=== PATIENT | female | born 1980 | race Caucasian/White ===

== ENCOUNTER 2017-08-03 09:53 | Day surgery (SDC) | payer MEDICAID, OTHER ==
[2017-08-02 10:08] VITALS: BMI 32.2
[~2017-08-03 09:53] MED LIST: LACTATED RINGERS 1,000 ML IV SCH
[2017-08-03 11:21] VITALS: TEMP 98.1
[2017-08-03] MEDS ORDERED: LIDOCAINE 1% 20 ML VIAL (10MG/ML) FOR IV START INTRADERMA ONE (11:30)
[2017-08-03] MEDS ORDERED: GLYCOPYRROLATE 0.2 MG/ML 2 ML VIAL ONE (12:04)
[2017-08-03] MEDS ORDERED: PROPOFOL 10 MG/ML 20 ML VIAL IV ONE (12:04)
[2017-08-03] MEDS ORDERED: MIDAZOLAM 2 MG/2 ML VIAL ONE (12:04)
[2017-08-03] MEDS ORDERED: fentaNYL (PF) 50 MCG/ML 2 ML AMP ONE (12:04)
--- NOTE | 2017-08-03 12:24 | P.PCN ---
Date of Procedure: 08/03/17 Preoperative Diagnosis: Postoperative Diagnosis: Procedure(s) Performed: Brief history: Patient is a pleasant 37-year-old white female, scheduled for an elective upper endoscopy as well as colonoscopy as a part of evaluation of abdominal discomfort , GERD and chronic diarrhea ,on and off for the last 1 year duration. Procedure performed: Esophagogastroduodenoscopy with biopsy Colonoscopy with biopsy Preoperative diagnosis: GERD Chronic diarrhea Anesthesia: MAC Procedure: After informed consent was obtained from the patient was brought into the endoscopy unit and IV sedation was administered by anesthesia under continuous monitoring. Initially upper endoscopy was done. The Olympus GF 160 video endoscope was inserted inserted into the mouth and esophagus intubated without any difficulty and was gradually advanced into the stomach and duodenum and carefully examined. The bulb and second part of the duodenum appeared normal. Biopsies were done from the duodenum to rule out celiac disease. The scope was then withdrawn into the stomach adequately insufflated with air and upon careful examination the antrum had mild gastritis and biopsies were done from this area. The body, cardia and fundus appeared normal. The scope was then withdrawn into the esophagus. The GE junction was located at 40 cm to the incisors. It appeared regular with no erythema erosions or ulcerations. Rest of the esophagus appeared normal. Patient tolerated the procedure well. At this time the patient continued to remain sedation. Initial digital rectal examination was normal. Olympus CF 160 video colonoscope was then inserted into the rectum and gradually advanced to the cecum without any difficulty. Careful examination was performed as the scope was gradually being withdrawn. The prep was excellent. The cecum, ascending colon, transverse colon, descending colon, sigmoid colon and rectum appeared normal. Random biopsies were done from the ascending and descending colon to rule out microscopic/ collagenous colitis. Retroflexion was performed in the rectum and no lesions were noted. Patient tolerated the procedure well. Impression: 1. Upper endoscopy revealed mild antral gastritis but no evidence of esophagitis or peptic ulcer disease 2. Colonoscopy revealed was within normal limits with no evidence of colitis or colorectal neoplasia. Recommendations: Findings of this examination were discussed with the patient as well as her family. she was advised to follow with the biopsy results. She will continue with Prilosec and follow antireflux measures. Implants: Indications for Procedure: Operative Findings: Description of Procedure:
[2017-08-03 12:44] VITALS: BP 107/58; PULSE 66; RESP 18
== END 2017-08-03 13:08 | disposition home or self-care (01) ==
LOC: ORWHC2ENDO 09:53
PROVIDERS: ATTEND Internal Medicine Gastroenterology
DX: K29.50 Unspecified chronic gastritis without bleeding (principal); K21.9 Gastro-esophageal reflux disease without esophagitis; K52.9 Noninfective gastroenteritis and colitis, unspecified; F17.210 Nicotine dependence, cigarettes, uncomplicated; Z79.899 Other long term (current) drug therapy
CPT/HCPCS: 88305; 88342; 45380; 43239; J2250; J3010; J2704

== ENCOUNTER → 2018-08-23 | Outpatient (CLI) | payer MEDICAID | END | disposition home or self-care (01) | LOC: LABWHC1 10:02 | PROVIDERS: ATTEND Nurse Practitioner Family | DX: K21.9 Gastro-esophageal reflux disease without esophagitis (principal); J02.9 Acute pharyngitis, unspecified; R19.7 Diarrhea, unspecified; E04.1 Nontoxic single thyroid nodule; R53.83 Other fatigue | CPT/HCPCS: 36415 ==

== ENCOUNTER → 2018-08-23 | Outpatient (CLI) | payer MEDICAID ==
[2018-08-23 11:52] LABS: ALT 39 U/L (9-52); AST 25 U/L (14-36); Albumin 4.4 g/dL (3.5-5.0); Alkaline Phosphatase 66 U/L (38-126); Amylase 48 U/L (30-110); Anion Gap 9 mmol/L; Blood Urea Nitrogen 7 mg/dL (7-17); Calcium 9.9 mg/dL (8.4-10.2); Carbon Dioxide 26 mmol/L (22-30); Chloride 105 mmol/L (98-107); Glucose 82 mg/dL (74-99); Lipase 60 U/L (23-300); Potassium 4.3 mmol/L (3.5-5.1); Sodium 140 mmol/L (137-145); Total Bilirubin 0.7 mg/dL (0.2-1.3); Total Protein 7.3 g/dL (6.3-8.2)
[2018-08-23 18:45] LABS: Thyroid Peroxidase Antibodies 76.7 U/mL (0.0-60.0)
[2018-08-23 20:30] LABS: Hepatitis A Antibody IgM Non-Reactive (Non-Reactive); Hepatitis B Core IgM Non-Reactive (Non-Reactive)
[2018-08-24 11:33] LABS: Gluten IgE Class CLASS 0
== END | disposition home or self-care (01) ==
LOC: LABWHC1 10:06
PROVIDERS: ATTEND Otolaryngology
DX: J30.89 Other allergic rhinitis (principal)
CPT/HCPCS: 36415; 80053; 80074; 82150; 83690; 86001; 86003; 86376

== ENCOUNTER 2018-09-07 08:36 | Day surgery (SDC) | payer MEDICAID, OTHER ==
[2018-09-07 09:20] VITALS: BP 121/74; PULSE 67; RESP 20; TEMP 97.8
--- NOTE | 2018-09-07 13:34 | US ---
EXAMINATION TYPE: US FNA thyroid DATE OF EXAM: 09/07/2018 COMPARISON: NONE HISTORY: Thyroid nodule. Maximal barrier technique was utilized. After informed consent, skin overlying the lesion was locali zed with ultrasound and the overlying skin prepped and draped. Ultrasound was utilized using sterile technique. Lidocaine was used for local anesthesia. Five passes with a 25-gauge needle were made int o the left-sided thyroid nodule and aspirated specimen was submitted to cytology. Following the proc edure hemostasis achieved. No immediate complication. The patient discharged in stable condition. IMPRESSION: STATUS POST ULTRASOUND GUIDED FINE NEEDLE ASPIRATION OF THYROID NODULE, PATHOLOGY IS PEND ING. THIS PROCEDURE WAS PERFORMED BY THE UNDERSIGNED.
== END 2018-09-07 11:10 | disposition home or self-care (01) ==
LOC: RADPROMAIN 08:36
PROVIDERS: ATTEND Otolaryngology
DX: E04.1 Nontoxic single thyroid nodule (principal); E06.3 Autoimmune thyroiditis; E03.9 Hypothyroidism, unspecified
CPT/HCPCS: 10022; 36415; 76942; 88173; 88305

== ENCOUNTER 2018-10-02 08:02 | Day surgery (SDC) | payer MEDICAID ==
[2018-10-02 10:02] VITALS: BP 116/69; PULSE 56; RESP 18; TEMP 98.3
--- NOTE | 2018-10-02 10:28 | US ---
EXAMINATION TYPE: US FNA thyroid DATE OF EXAM: 10/02/2018 COMPARISON: NONE HISTORY: Thyroid nodule. Maximal barrier technique was utilized. After informed consent, skin overlying the lesion was locali zed with ultrasound and the overlying skin prepped and draped. Ultrasound was utilized using sterile technique. Lidocaine was used for local anesthesia. Five passes with a 25-gauge needle were made int o the nodule and aspirated specimen was submitted to cytology. Following the procedure hemostasis ac hieved. No immediate complication. The patient discharged in stable condition. IMPRESSION: STATUS POST ULTRASOUND GUIDED FINE NEEDLE ASPIRATION OF THYROID NODULE, PATHOLOGY IS PEND ING. THIS PROCEDURE WAS PERFORMED BY THE UNDERSIGNED.
== END 2018-10-02 10:07 | disposition home or self-care (01) ==
LOC: RADPROMAIN 08:02
PROVIDERS: ATTEND Nurse Practitioner Family
DX: E04.1 Nontoxic single thyroid nodule (principal)
CPT/HCPCS: 10022; 76942; 88173; 88305

== ENCOUNTER 2018-10-20 18:19 | Emergency (ER) | payer MEDICAID, OTHER ==
[2018-10-20 18:25] VITALS: TEMP 98.3
--- NOTE | 2018-10-20 18:52 | ED ---
General Adult HPI - General Chief complaint: Needlestick/Exposure Stated complaint: Needle stick Time Seen by Provider: 10/20/18 18:29 Source: patient, RN notes reviewed Mode of arrival: ambulatory Limitations: no limitations - History of Present Illness Initial comments: Patient is a 38-year-old female who presents the emergency department with complaint of a needle stick injury that happened approximately 6 PM today. 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 She cleaned the wound thoroughly. She is up-to-date on her tetanus vaccine. Patient denies any recent fever, chills, shortness of breath, chest pain, back pain, abdominal pain, nausea or vomiting, numbness or tingling, headaches or visual changes, or any other complaints. - Related Data Home Medications Medication Instructions Recorded Confirmed Levothyroxine Sodium [Synthroid] 88 mcg PO DAILY 09/11/15 10/02/18 Multivitamins, Thera [Multivitamin] 1 tab PO DAILY 05/06/16 10/02/18 Calcium Carbonate [Calcium] 1,200 mg PO DAILY 08/02/17 10/02/18 Cholecalciferol [Vitamin D3] 2,000 unit PO DAILY 08/02/17 10/02/18 Fluticasone Nasal [place] [Flonase 1 spray EA NOSTRIL DAILY 08/30/18 10/02/18 Nasal [place]] Montelukast [Singulair] 10 mg PO HS 08/30/18 10/02/18 Omeprazole [PriLOSEC] 40 mg PO BID 08/30/18 10/02/18 Allergies Allergy/AdvReac Type Severity Reaction Status Date / Time No Known Allergies Allergy Verified 10/20/18 18:25 Review of Systems ROS Statement: Those systems with pertinent positive or pertinent negative responses have been documented in the HPI. ROS Other: All systems not noted in ROS Statement are negative. Past Medical History Past Medical History: Thyroid Disorder Additional Past Medical History / Comment(s): RECENT CHANGE IN BOWEL HABITS AND INCREASED MUCUS IN STOOLS, thyroid nodule History of Any Multi-Drug Resistant Organisms: None Reported Past Surgical History: Hysterectomy Additional Past Surgical History / Comment(s): Oophorectomy 2012 Past Anesthesia/Blood Transfusion Reactions: No Reported Reaction Past Psychological History: No Psychological Hx Reported Smoking Status: Former smoker Past Alcohol Use History: Occasional Past Drug Use History: None Reported - Past Family History Mother Family Medical History: No Reported History General Exam Limitations: no limitations General appearance: alert, in no apparent distress Head exam: Present: atraumatic, normocephalic Eye exam: Present: normal appearance Respiratory exam: Present: normal lung sounds bilaterally Cardiovascular Exam: Present: regular rate, normal rhythm Extremities exam: Present: full ROM (Hands and fingers.), other (Tiny erythematous dot where finger was stuck. No active bleeding.) Neurological exam: Present: alert, oriented X3 Psychiatric exam: Present: normal affect, normal mood Skin exam: Present: dry, normal color Course Vital Signs 10/20/18 18:22 Temperature 98.3 F Pulse Rate 83 Respiratory 18 Rate Blood Pressure 127/66 O2 Sat by Pulse 99 Oximetry Medical Decision Making - Medical Decision Making Patient works here at the hospital. Source patient will be checked for HIV status and she will be notified of the results (she does not want to wait here for results). Discussed HIV prophylaxis; patient has chosen to wait for the HIV results of the source patient. Ms. Nayak's cell phone number that she provided to receive her results is . Case discussed in detail with attending physician Dr. Roberts. Disposition Clinical Impression: Needle stick injury of finger Disposition: HOME SELF-CARE Condition: Good Instructions: Needle Stick Injuries (ED) Additional Instructions: Follow up with [employer] in 1-2 days. Is patient prescribed a controlled substance at d/c from ED?: No Referrals: Jenifer Hernandez DO [Primary Care Provider] - 1-2 days
[2018-10-20 20:15] VITALS: BP 120/74; PULSE 65; RESP 16
== END 2018-10-20 20:10 | disposition home or self-care (01) ==
LOC: EC 18:19
DX: S69.90XA Unspecified injury of unspecified wrist, hand and finger(s), initial encounter (principal); E07.9 Disorder of thyroid, unspecified; Z79.899 Other long term (current) drug therapy; W27.3XXA Contact with needle (sewing), initial encounter; Y92.239 Unspecified place in hospital as the place of occurrence of the external cause; Y99.0 Civilian activity done for income or pay
CPT/HCPCS: 99282

== ENCOUNTER → 2018-11-16 | Outpatient (CLI) | payer MEDICAID ==
--- NOTE | 2018-11-16 14:12 | MR ---
EXAMINATION TYPE: MR brain wo/w con DATE OF EXAM: 11/16/2018 COMPARISON: NONE HISTORY: Prolonged headaches TECHNIQUE: Multiplanar, multisequence images of the brain and brainstem is performed without and with IV contras t, utilizing 9 mL intravenous Gadavist . FINDINGS: Diffusion weighted images demonstrate no evidence of a recent infarct. There is a solitary punctate (2.4 mm) left periventricular T2/FLAIR hyperintense focus on FLAIR fat sat axial image 20. N o other significant white matter changes seen. This does not demonstrate enhancement. There is no extra-axial fluid collection or significant white matter signal abnormality. The ventric ular system and cisternal spaces are normal in size and appearance. The brain volume is age appropri ate. Midline structures demonstrate normal morphology. Incidental note is made of a partially empty sella turcica. 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 There is undulation of the optic nerves and promi nent T2 hyperintense subarachnoid spaces surrounding the optic nerves. The craniocervical junction appears within normal limits. Post contrast images demonstrate no abnorm al enhancement. The dural venous sinuses appear patent. The visualized sinuses are clear other than m ild mucosal thickening in the ethmoid sinuses and scant mucosal thickening in the left maxillary sinu s. Mastoid air cells are also well aerated. IMPRESSION: 1. There are findings that suggest idiopathic intracranial hypertension/pseudotumor cerebri as there is increased fluid surrounding the optic nerves, undulation of the optic nerves, and partially empty sella turcica. Ophthalmologic exam is recommended to evaluate for papilledema. 2. Solitary left periventricular 2.4 mm focus of white matter change. This could be on the basis of e chelsey microangiopathy, sequela of migraines, or related to demyelination. 3. No abnormal intracranial enhancement or acute infarct.
== END | disposition home or self-care (01) ==
LOC: RADMRIMAIN 07:47
PROVIDERS: ATTEND Psychiatry & Neurology Neurology
DX: R90.89 Other abnormal findings on diagnostic imaging of central nervous system (principal)
CPT/HCPCS: 70553; A9585

== ENCOUNTER → 2018-11-29 | Outpatient (CLI) | payer MEDICAID | LOC: LABWHC1 13:12 | PROVIDERS: ATTEND Internal Medicine Endocrinology, Diabetes & Metabolism | DX: E03.8 Other specified hypothyroidism (principal) | CPT/HCPCS: 36415; 84443 ==

== ENCOUNTER → 2018-12-05 | Outpatient (CLI) | payer MEDICAID ==
--- NOTE | 2018-12-05 10:21 | MR ---
EXAMINATION TYPE: MR venography head wo con DATE OF EXAM: 12/05/2018 COMPARISON: MRI brain 11/16/2018 HISTORY: Headaches / Papilledema Standard multiplanar, multisequence MRV departmental protocol Multiplanar, multisequence images as part of MRV were acquired. Diffusion weighted imaging was perfor med. FINDINGS: Exam is nondiagnostic in assessment for thrombosis due to extensive artifact. There does no t appear to be any significant compression of the dural venous sinuses. Slight asymmetry involving th e base of the skull was likely developmental. Report called to referring clinician. IMPRESSION: Markedly limited exam due to artifact. Intraluminal thrombus cannot be excluded and this exam is nond iagnostic for thrombosis. There is no dural venous sinus compression. If there is concern for dural v enous sinus thromboses then consider repeat exam with and without contrast.
--- NOTE | 2018-12-06 13:46 | MR ---
MRV with contrast HISTORY: Headaches and papilledema Phase contrast and dynamic Postcontrast imaging obtained through the brain following 9 cc Gadavist. T hree-dimensional post processing performed on an alternate workstation. Correlation to prior MRV 12/05/2018 There is no interval change in the appearance of the venous structures within the brain. Straight sin us, bilateral transverse sinus and sigmoid sinus, sagittal sinus and vena Joshua are patent. There is no filling defect to suggest thrombus. IMPRESSION: No abnormality to suggest thrombus within the cerebral veins.
== END | disposition home or self-care (01) ==
LOC: RADMRIMAIN 07:46
PROVIDERS: ATTEND Ophthalmology
DX: R51 Headache (principal); H47.10 Unspecified papilledema
CPT/HCPCS: 70544; 70545

== ENCOUNTER 2018-12-19 07:31 | Day surgery (SDC) | payer MEDICAID ==
[2018-12-18 08:30] VITALS: BMI 29.6
[~2018-12-19 07:31] MED LIST changes: -LACTATED RINGERS 1,000 ML IV SCH; +SODIUM CHLORIDE 0.9% 500 ML 500 ML IV SCH
[2018-12-19 08:45] VITALS: RESP 16; TEMP 97.6
[2018-12-19] MEDS ORDERED: LIDOCAINE 1% 20 ML VIAL (10MG/ML) FOR IV START INTRADERMA ONE (08:49)
[2018-12-19] MEDS ORDERED: LACTATED RINGERS 1,000 ML IV ONE (08:49)
[2018-12-19] MEDS ORDERED: IV FLUID CONTINUATION 1,000 ML IV ONE (09:54)
--- NOTE | 2018-12-19 09:55 | P.PCN ---
Date of Procedure: 12/19/18 Procedure(s) Performed: Preoperative diagnosis: Pseudotumor cerebri. Post operative diagnoses: Pseudotumor cerebri Anesthesia local infiltration with lidocaine 1% 2 mL.only Condition: stable Complication: none. Description of the procedure procedure risk and benefits discussed with the patient and family, consent signed. Patient and the procedure area placed in lateral position , ( left side down ) then the back prepped with chlorhexidine 3 times been local infiltration of the skin and subcutaneous tissue with lidocaine 1% 2 mL for skin and subcu interstitial frustrations at L4 5 levels then 22-gauge Quincke-type needle advanced slowly at L4- 5 interlaminar space there was positive cerebrospinal fluid which was clear, no heme, no paresthesia ,total of 10.5 ML of clear cerebrospinal fluid collected in 4 different tubes 2-2-1/2 mL in each, then the needle removed and a Band-Aid applied and patient tolerated the procedure well without any complications. Opening pressure 34 cm of water. Closing pressure 20 cm of water (after removal of tenderness ML of clear cerebrospinal fluid )
[2018-12-19 10:36] LABS: Glucose,CSF 48 mg/dL (40-70); Total Protein,CSF 15 mg/dL (12-60)
[2018-12-19 10:49] VITALS: BP 121/78; PULSE 61
[2018-12-19 12:43] LABS: Appearance,CSF Clear; CSF Tube Number 4; CSF Tube Volume 2.3; Red Blood Cell,CSF 0 u/L (0-10)
[2018-12-19 12:44] LABS: Nucleated Cells, CSF 0 u/L (0-5)
== END 2018-12-19 11:08 | disposition home or self-care (01) ==
LOC: ORPAIN 07:31
PROVIDERS: ATTEND Specialist
DX: G93.2 Benign intracranial hypertension (principal)
CPT/HCPCS: 84157; 82945; 89050; 62270; J2001

== ENCOUNTER → 2019-03-09 | Outpatient (CLI) | payer MEDICAID ==
[2019-03-09 16:44] VITALS: BP 117/74; PULSE 85; RESP 18; TEMP 98.5; BMI 27.6
--- NOTE | 2019-03-09 17:18 | P.GSHP ---
History of Present Illness H&P Date: 03/09/19 Chief Complaint: skin changes Patient is a 38-year-old white female who presents with a complaint of burning sensation in the right axillary area. She states that it starts in the axilla and spreads towards the nipple complex. This is been going on for approximately 2 weeks. She states it is worse if anything rubs against this area. She also feels that she has some increased thickening of the skin in this region and especially in the inferior aspect of the breast. This is questionably been going on for approximately 2 years. The patient is postmenopausal secondary to a bilateral oophorectomy at the age of 32. She had a hysterectomy at 30 for uterine bleeding. She willian started having severe abdominal pain with bowel movements. She than had an abdominal exploration and had bilateral oophrectomy done at that time. She was taking premerin for three years, and than tried bio- identical hormone cream, for about 6 months. She than used a menostar patch and had sever hip pain. She started premarin again in May of 2018 and used it for 2 weeks and stopped this. she is not taking anything at the present time. The patient states that she notes that the right area right is larger than the left periareolar. She has no history of any trauma to her breast. She has no history of any infection in her breast. Her breast pain is not cyclical. The pain can be exacerbated by movement. She does associate the pain starting with a course of Levaquin that she has now stopped this on February 14. She initially had burning on the right side of her body and now the abdomen has subsided and she only has the residual burning in the right breast. This was started for a sinus infection. The patient was drinking approximately 20 ounces of coffee per day. She is now cut it down to 12 ounce cup of coffee per day. She is not drinking other caffeine. She does not eat chocolate. She does not smoke however, she is exposed to secondhand smoke as her smokes. The patient did undergo a bilateral mammogram on 02/16/2019suspicious calcifications were seen in either breast. She also had a ultrasound of the right breast performed which was felt to be benign. Recommendation was for routine screening mammogram of both breasts at age 42. Family History: 1. maternal grandmother: breast cancer 70's 2. maternal uncle:esophogeal 3. maternal great uncle: colon 4. paternal grandfather, grandmother, and aunt: lung cancer Hormonal History: menarche: 16 : G2,P2, first at 23, breast fed: yes menopause: 32 surgical BCP:none hormones: as above Past surgical history: 1. Hysterectomy 2. Bilateral oophorectomy 3. Appendectomy Past Medical History: 1. Idiopathic intracranial hypertension causing headaches, (on Diamox) 2. breast pain Surgical History: smoke: none, stopped 2010 alcohol: 3-4 drinks/year drugs: none - Constitutional Constitutional: Reports sweats - EENT Eyes: right pain (monitered by neuro-opthamologist) Ears: bilateral: tinnitus, deny: decreased hearing Ears, nose, mouth and throat: Reports headache, Reports sore throat - Breasts Breasts: bilateral: as per HPI - Cardiovascular Cardiovascular: Denies chest pain, Denies shortness of breath - Respiratory Respiratory: Denies cough, Denies 7 - Gastrointestinal Comment: GERD Gastrointestinal: Reports diarrhea - Genitourinary (Female) Genitourinary: Denies dysuria, Denies hematuria - Menstruation Menstruation: Reports postmenopausal - Musculoskeletal Comment: right knee stiffness and tremers - Integumentary Comment: Patient noted red spots over her chest and both breasts and abdomen over the past year, since May, told age related angiomas Integumentary: Denies pruritus - Neurological Neurological: Reports weakness, Denies numbness - Psychiatric Psychiatric: Reports anxiety, Reports depression - Endocrine Comment: Trupti's thyroiditis, hypothyroidism, left-sided thyroid nodule - Hematologic/Lymphatic Comment: none - Allergic/Immunologic Allergic/Immunologic: Reports seasonal allergies Past Medical History Past Medical History: GERD/Reflux, Thyroid Disorder Additional Past Medical History / Comment(s): thyroid nodule. pseudotumor cerbri/idiopathic intracranial hypertension History of Any Multi-Drug Resistant Organisms: None Reported Past Surgical History: Appendectomy, Hysterectomy Additional Past Surgical History / Comment(s): Oophorectomy 2011. colonoscopy, egd Past Anesthesia/Blood Transfusion Reactions: Motion Sickness Past Psychological History: Anxiety, Depression Smoking Status: Never smoker Past Alcohol Use History: Rare Past Drug Use History: None Reported - Past Family History Mother Family Medical History: No Reported History Medications and Allergies Home Medications Medication Instructions Recorded Confirmed Type Cholecalciferol [Vitamin D3] 2,000 unit PO QAM 08/02/17 03/09/19 History Levothyroxine Sodium [Synthroid] 100 mcg PO QAM 12/18/18 03/09/19 History ALPRAZolam [Xanax] 0.25 mg PO DAILY PRN 02/25/19 03/09/19 History Diphenox-Atrop 2.5-0.025 mg 1 - 2 tab PO QID PRN 3 Days #24 tab 02/25/19 03/09/19 Rx [Lomotil] Famotidine [Pepcid AC] 10 mg PO DAILY PRN 02/25/19 03/09/19 History Zoloft (Unknown Dose) 1 tab PO HS 02/25/19 03/09/19 History Zolpidem Tartrate [Ambien] 5 mg PO HS PRN 02/25/19 03/09/19 History acetaZOLAMIDE [Diamox Sequels] 500 mg PO PC-LUNCH 02/25/19 03/09/19 History Multivitamins, Thera [Multivitamin 1 tab PO QAM 03/09/19 03/09/19 History (formulary)] Rifaximin [Xifaxan] 550 mg PO TID 03/09/19 03/09/19 History clonazePAM [KlonoPIN] 0.25 mg PO QAM 03/09/19 03/09/19 History clonazePAM [KlonoPIN] 0.5 mg PO HS 03/09/19 03/09/19 History Allergies Allergy/AdvReac Type Severity Reaction Status Date / Time levofloxacin [From Levaquin] AdvReac Nausea & Verified 03/09/19 16:29 Vomiting & Diarrhea Surgical - Exam BMI 27.7 - General well developed, well nourished, no distress - Eyes normal ocular movement - ENT no hearing loss, no congestion - Neck no masses, trachea midline - Respiratory normal respiratory effort, clear to auscultation - Cardiovascular Rhythm: regular Heart Sounds: normal: S1, S2 - Abdomen Abdomen: soft, non tender, no guarding, no rigid, no rebound - Neurologic no disoriented, no combative - Musculoskeletal normal gait, normal posture - Psychiatric oriented to time, oriented to person, oriented to place, speech is normal, memory intact breast exam: right breast: The patient's right breast is slightly larger than the left breast there is some mild dependent edema and inferior aspect, multiple positional exam no dominant masses or nodules of concern Right axilla: No adenopathy of concern Left breast multiple positional exam fibrocystic changes no dominant mass or notches of concern Left axilla: No adenopathy of concern Results Mammogram and ultrasound results reviewed Assessment and Plan Assessment: Impression: 1. Right breast/axillary discomfort 2. Right back/shoulder discomfort 3. Postmenopausal/surgical 4. Inferior dependent edema the right breast 5. Asymmetry of the breasts 6. High caffeine intake 7. Secondhand smoke exposure 8. Idiopathic intracranial hypertension 9. Back pain 10. No evidence of any breast malignancy I have had a long conversation with the patient regarding her breast discomfort. I believe that the skin changes are most likely related to the asymmetry in her breast and some dependent edema. There is no indication of any malignancy. The patient does have some point tenderness in her right back which is felt to be musculoskeletal in nature and not emanating from the breast. We have discussed stopping her caffeine intake, and limiting her exposure to nicotine. We have also discussed the possible benefit of primrose oil. I suggested massage therapy to her back. Plan: 1. Stop caffeine 2. Limited nicotine exposure 3. Massage therapy for back pain 4. Mahomet oil 5. Reassurance that the area of skin change in the right inferior breast does not appear to be consistent with malignancy 6. We have decided the patient again in several months to ascertain if the interventions have helped with her breast discomfort. 7. Medical management of medical conditions. Cc: Dr. Nilo Noe
== END | disposition home or self-care (01) ==
LOC: WWCWWP 16:10
PROVIDERS: ATTEND Surgery
DX: Z53.9 Procedure and treatment not carried out, unspecified reason (principal)

== ENCOUNTER 2019-04-28 15:23 | Emergency (ER) | payer MEDICAID ==
[2019-04-28 15:56] VITALS: RESP 18
[2019-04-28] MEDS ORDERED: SODIUM CHLORIDE 0.9% 1,000 ML IV STA (16:01)
[2019-04-28 16:25] LABS: Basophils # (A) 0.1 k/uL (0-0.2); Basophils % (A) 1 %; Eosinophils # (A) 0.1 k/uL (0-0.7); Eosinophils % (A) 2 %; HCT 42.8 % (34.0-46.0); HGB 13.5 gm/dL (11.4-16.0); Lymphocytes # (A) 1.9 k/uL (1.0-4.8); Lymphocytes % (A) 23 %; MCH 28.7 pg (25.0-35.0); MCHC 31.6 g/dL (31.0-37.0); MCV 90.8 fL (80.0-100.0); Mean Platelet Volume 7.1; Monocytes # (A) 0.5 k/uL (0-1.0); Monocytes % (A) 6 %; Neutrophils # (A) 5.3 k/uL (1.3-7.7); Neutrophils % (A) 67 %; Platelet Count 340 k/uL (150-450); RBC 4.71 m/uL (3.80-5.40); WBC 7.9 k/uL (3.8-10.6)
[2019-04-28 16:33] LABS: Partial Thromboplastin Time 25.6 sec (22.0-30.0); Prothrombin Time 10.6 sec (9.0-12.0)
[2019-04-28] MEDS ORDERED: PANTOPRAZOLE 40 MG/10 ML VIAL IVP STA (16:34)
[2019-04-28 16:41] LABS: Albumin 4.8 g/dL (3.5-5.0); Calcium 9.9 mg/dL (8.4-10.2); Potassium 4.2 mmol/L (3.5-5.1); Total Bilirubin 0.7 mg/dL (0.2-1.3); Total Protein 7.6 g/dL (6.3-8.2)
--- NOTE | 2019-04-28 16:56 | ED ---
General Adult HPI - General Chief complaint: Abdominal Pain Stated complaint: bloody stool/abdominal & rectal pressure Time Seen by Provider: 04/28/19 15:57 Source: patient, RN notes reviewed Mode of arrival: ambulatory Limitations: no limitations - History of Present Illness Initial comments: 38 year old female with a past medical history of Trupti's, GERD, pseudotumor cerebri presents to the emergency department for a chief complaint of abdominal pain 11 months. Patient states that she has had worsening abdominal and rectal pressure for the past 11 months. Patient states she is now having looser stool. States that she had more pressure in her rectum today so came to the emergency department. States she has had blood in her stool for the past 11 months as well. States it is bright red in nature. Patient states she did have a colonos copy in 2017 because of mucus in her stool which was negative. States that 2 months ago she had 2 CTs that were negative of the abdomen and pelvis. Denies any nausea or vomiting. Denies any fevers. Patient states that she is also having some chest pain and states she is very anxious. States the chest pain as it on and off for weeks.Patient has no other complaints at this time including shortness of breath, chest pain, nausea or vomiting, headache, or visual changes. - Related Data Home Medications Medication Instructions Recorded Confirmed Cholecalciferol [Vitamin D3] 2,000 unit PO QAM 08/02/17 03/09/19 Levothyroxine Sodium [Synthroid] 100 mcg PO QAM 12/18/18 03/09/19 ALPRAZolam [Xanax] 0.25 mg PO DAILY PRN 02/25/19 03/09/19 Famotidine [Pepcid AC] 10 mg PO DAILY PRN 02/25/19 03/09/19 Zoloft (Unknown Dose) 1 tab PO HS 02/25/19 03/09/19 Zolpidem Tartrate [Ambien] 5 mg PO HS PRN 02/25/19 03/09/19 acetaZOLAMIDE [Diamox Sequels] 500 mg PO PC-LUNCH 02/25/19 03/09/19 Multivitamins, Thera [Multivitamin 1 tab PO QAM 03/09/19 03/09/19 (formulary)] Rifaximin [Xifaxan] 550 mg PO TID 03/09/19 03/09/19 clonazePAM [KlonoPIN] 0.25 mg PO QAM 03/09/19 03/09/19 clonazePAM [KlonoPIN] 0.5 mg PO HS 03/09/19 03/09/19 Previous Rx's Medication Instructions Recorded Diphenox-Atrop 2.5-0.025 mg 1 - 2 tab PO QID PRN 3 Days #24 tab 02/25/19 [Lomotil] Allergies Allergy/AdvReac Type Severity Reaction Status Date / Time levofloxacin [From Levaquin] AdvReac Nausea & Verified 04/28/19 15:56 Vomiting & Diarrhea Review of Systems ROS Statement: Those systems with pertinent positive or pertinent negative responses have been documented in the HPI. ROS Other: All systems not noted in ROS Statement are negative. Past Medical History Past Medical History: GERD/Reflux, Thyroid Disorder Additional Past Medical History / Comment(s): thyroid nodule. pseudotumor cerbri/idiopathic intracranial hypertension History of Any Multi-Drug Resistant Organisms: None Reported Past Surgical History: Appendectomy, Hysterectomy Additional Past Surgical History / Comment(s): Oophorectomy 2011. colonoscopy, egd Past Anesthesia/Blood Transfusion Reactions: Motion Sickness Past Psychological History: Anxiety, Depression Smoking Status: Never smoker Past Alcohol Use History: Rare Past Drug Use History: None Reported - Past Family History Mother Family Medical History: No Reported History Additional Family Medical History / Comment(s): maternal grandmother with breast cancer General Exam Limitations: no limitations General appearance: alert, in no apparent distress Head exam: Present: atraumatic, normocephalic, normal inspection Eye exam: Present: normal appearance, PERRL, EOMI. Absent: scleral icterus, conjunctival injection, periorbital swelling ENT exam: Present: normal exam, mucous membranes moist Neck exam: Present: normal inspection, full ROM. Absent: tenderness, meningis mus, lymphadenopathy Respiratory exam: Present: normal lung sounds bilaterally. Absent: respiratory distress, wheezes, rales, rhonchi, stridor Cardiovascular Exam: Present: regular rate, normal rhythm, normal heart sounds. Absent: systolic murmur, diastolic murmur, rubs, gallop, clicks GI/Abdominal exam: Present: soft, tenderness (Mild epigastric and left upper quadrant tenderness. Minimal left lower quadrant tenderness.), normal bowel sounds. Absent: distended, guarding, rebound, rigid Back exam: Absent: CVA tenderness (R), CVA tenderness (L) Neurological exam: Present: alert, oriented X3, CN II-XII intact Psychiatric exam: Present: anxious Course Vital Signs 04/28/19 15:53 Temperature 97.8 F Pulse Rate 69 Respiratory 18 Rate Blood Pressure 113/73 O2 Sat by Pulse 98 Oximetry EKG Findings - EKG Comments: EKG Findings:: Sinus bradycardia, ventricular rate 52, MT interval 150, QTC 398 Medical Decision Making - Medical Decision Making 38-year-old female presents for multiple complaints. Patient is complaining of abdominal pain and bright red blood per rectum 11 months[address] Had [address] scans in the past 2 months. States she does see Dr. Davis which she has seen before for having mucus in her stool. States she had a negative classically 2 years ago because of this. However patient has not followed up with Dr. Davis in the past 11 months. States that today she had more rectal pressure been normal so came here. On exam mild epigastric tenderness with left upper quadrant tenderness. Positive Lower abdominal tenderness. Some minimal left lower quadrant. Eyes fevers. CBC CMP unremarkable. Urine unremarkable. I did recommend a CT at this time however patient refuses this stating she already had 2 in the past 2 months and has had too much radiation. She is requesting an MRI. I did discuss with patient that I'm unable to do an MRI but she still refuses CT. Patient will follow up with Dr. Davis for appropriate imaging. P atient also having some mild palpitations which is likely related to anxiety as she is very anxious and tearful in the exam room. Denies any chest pain. EKG is normal. Troponin is negative. Patient will follow up with primary care for this. Patient will return here if she has any worsening symptoms or she wishes to have another CT. She did begin to complain of lower tooth pain on discharge. States this has been ongoing for weeks. States it is all of her lower teeth. States she is following up with her neurologist this week for this but is requesting something for pain. Patient will be given an [place]. No evidence of abscess or infection. - Lab Data Result diagrams: 04/28/19 16:08 04/28/19 16:08 Lab Results 06/01/19 06/01/19 06/01/19 Range/Units 16:08 16:08 16:08 WBC 7.9 (3.8-10.6) k/uL RBC 4.71 (3.80-5.40) m/uL Hgb 13.5 (11.4-16.0) gm/dL Hct 42.8 (34.0-46.0) % MCV 90.8 (80.0-100.0) fL MCH 28.7 (25.0-35.0) pg MCHC 31.6 (31.0-37.0) g/dL RDW 14.0 (11.5-15.5) % Plt Count 340 (150-450) k/uL Neutrophils % 67 % Lymphocytes % 23 % Monocytes % 6 % Eosinophils % 2 % Basophils % 1 % Neutrophils # 5.3 (1.3-7.7) k/uL Lymphocytes # 1.9 (1.0-4.8) k/uL Monocytes # 0.5 (0-1.0) k/uL Eosinophils # 0.1 (0-0.7) k/uL Basophils # 0.1 (0-0.2) k/uL PT 10.6 (9.0-12.0) sec INR 1.0 (<1.2) APTT 25.6 (22.0-30.0) sec Sodium 143 (137-145) mmol/L Potassium 4.2 (3.5-5.1) mmol/L Chloride 109 H (98-107) mmol/L Carbon Dioxide 25 (22-30) mmol/L Anion Gap 9 mmol/L BUN 13 (7-17) mg/dL Creatinine 0.99 (0.52-1.04) mg/dL Est GFR (CKD-EPI)AfAm 85 (>60 ml/min/1.73 sqM) Est GFR (CKD-EPI)NonAf 74 (>60 ml/min/1.73 sqM) Glucose 97 (74-99) mg/dL Calcium 9.9 (8.4-10.2) mg/dL Total Bilirubin 0.7 (0.2-1.3) mg/dL AST 18 (14-36) U/L ALT 21 (9-52) U/L Alkaline Phosphatase 68 (38-126) U/L Troponin I (0.000-0.034) ng/mL Total Protein 7.6 (6.3-8.2) g/dL Albumin 4.8 (3.5-5.0) g/dL Amylase 47 (30-110) U/L Lipase 52 (23-300) U/L TSH (0.465-4.680) mIU/L Urine Color Urine Appearance (Clear) Urine pH (5.0-8.0) Ur Specific [place] (1.001-1.035) Urine Protein (Negative) Urine Glucose (UA) (Negative) Urine Ketones (Negative) Urine Blood (Negative) Urine Nitrite (Negative) Urine Bilirubin (Negative) Urine Urobilinogen (<2.0) mg/dL Ur Leukocyte Esterase (Negative) Ur Squamous Epith Cells (0-4) /hpf Amorphous Sediment (None) /hpf Urine Bacteria (None) /hpf Urine Mucus (None) /hpf Urine HCG, Qual (Not Detectd) Stool Occult Blood (Negative) Blood Type Blood Type Confirm Blood Type Recheck Antibody Screen Spec Expiration Date 04/28/19 04/28/19 04/28/19 Range/Units 16:08 16:08 16:08 WBC (3.8-10.6) k/uL RBC (3.80-5.40) m/uL Hgb (11.4-16.0) gm/dL Hct (34.0-46.0) % MCV (80.0-100.0) fL MCH (25.0-35.0) pg MCHC (31.0-37.0) g/dL RDW (11.5-15.5) % Plt Count (150-450) k/uL Neutrophils % % Lymphocytes % % Monocytes % % Eosinophils % % Basophils % % Neutrophils # (1.3-7.7) k/uL Lymphocytes # (1.0-4.8) k/uL Monocytes # (0-1.0) k/uL Eosinophils # (0-0.7) k/uL Basophils # (0-0.2) k/uL PT (9.0-12.0) sec INR (<1.2) APTT (22.0-30.0) sec Sodium (137-145) mmol/L Potassium (3.5-5.1) mmol/L Chloride (98-107) mmol/L Carbon Dioxide (22-30) mmol/L Anion Gap mmol/L BUN (7-17) mg/dL Creatinine (0.52-1.04) mg/dL Est GFR (CKD-EPI)AfAm (>60 ml/min/1.73 sqM) Est GFR (CKD-EPI)NonAf (>60 ml/min/1.73 sqM) Glucose (74-99) mg/dL Calcium (8.4-10.2) mg/dL Total Bilirubin (0.2-1.3) mg/dL AST (14-36) U/L ALT (9-52) U/L Alkaline Phosphatase (38-126) U/L Troponin I <0.012 (0.000-0.034) ng/mL Total Protein (6.3-8.2) g/dL Albumin (3.5-5.0) g/dL Amylase (30-110) U/L Lipase (23-300) U/L TSH 0.699 (0.465-4.680) mIU/L Urine Color Urine Appearance (Clear) Urine pH (5.0-8.0) Ur Specific [place] (1.001-1.035) Urine Protein (Negative) Urine Glucose (UA) (Negative) Urine Ketones (Negative) Urine Blood (Negative) Urine Nitrite (Negative) Urine Bilirubin (Negative) Urine Urobilinogen (<2.0) mg/dL Ur Leukocyte Esterase (Negative) Ur Squamous Epith Cells (0-4) /hpf Amorphous Sediment (None) /hpf Urine Bacteria (None) /hpf Urine Mucus (None) /hpf Urine HCG, Qual (Not Detectd) Stool Occult Blood (Negative) Blood Type O Positive Blood Type Confirm Blood Type Recheck CABO Indicated Antibody Screen NEGATIVE Spec Expiration Date 05/01/2019230704/28/19 04/28/19 04/28/19 Range/Units 16:10 16:40 16:40 WBC (3.8-10.6) k/uL RBC (3.80-5.40) m/uL Hgb (11.4-16.0) gm/dL Hct (34.0-46.0) % MCV (80.0-100.0) fL MCH (25.0-35.0) pg MCHC (31.0-37.0) g/dL RDW (11.5-15.5) % Plt Count (150-450) k/uL Neutrophils % % Lymphocytes % % Monocytes % % Eosinophils % % Basophils % % Neutrophils # (1.3-7.7) k/uL Lymphocytes # (1.0-4.8) k/uL Monocytes # (0-1.0) k/uL Eosinophils # (0-0.7) k/uL Basophils # (0-0.2) k/uL PT (9.0-12.0) sec INR (<1.2) APTT (22.0-30.0) sec Sodium (137-145) mmol/L Potassium (3.5-5.1) mmol/L Chloride (98-107) mmol/L Carbon Dioxide (22-30) mmol/L Anion Gap mmol/L BUN (7-17) mg/dL Creatinine (0.52-1.04) mg/dL Est GFR (CKD-EPI)AfAm (>60 ml/min/1.73 sqM) Est GFR (CKD-EPI)NonAf (>60 ml/min/1.73 sqM) Glucose (74-99) mg/dL Calcium (8.4-10.2) mg/dL Total Bilirubin (0.2-1.3) mg/dL AST (14-36) U/L ALT (9-52) U/L Alkaline Phosphatase (38-126) U/L Troponin I (0.000-0.034) ng/mL Total Protein (6.3-8.2) g/dL Albumin (3.5-5.0) g/dL Amylase (30-110) U/L Lipase (23-300) U/L TSH (0.465-4.680) mIU/L Urine Color Light Yellow Urine Appearance Cloudy H (Clear) Urine pH 7.0 (5.0-8.0) Ur Specific [place] 1.011 (1.001-1.035) Urine Protein Negative (Negative) Urine Glucose (UA) Negative (Negative) Urine Ketones Negative (Negative) Urine Blood Negative (Negative) Urine Nitrite Negative (Negative) Urine Bilirubin Negative (Negative) Urine Urobilinogen <2.0 (<2.0) mg/dL Ur Leukocyte Esterase Negative (Negative) Ur Squamous Epith Cells 2 (0-4) /hpf Amorphous Sediment Rare H (None) /hpf Urine Bacteria Moderate H (None) /hpf Urine Mucus Rare H (None) /hpf Urine HCG, Qual Not Detected (Not Detectd) Stool Occult Blood (Negative) Blood Type Blood Type Confirm O Positive Blood Type Recheck Antibody Screen Spec Expiration Date 04/28/19 Range/Units 17:32 WBC (3.8-10.6) k/uL RBC (3.80-5.40) m/uL Hgb (11.4-16.0) gm/dL Hct (34.0-46.0) % MCV (80.0-100.0) fL MCH (25.0-35.0) pg MCHC (31.0-37.0) g/dL RDW (11.5-15.5) % Plt Count (150-450) k/uL Neutrophils % % Lymphocytes % % Monocytes % % Eosinophils % % Basophils % % Neutrophils # (1.3-7.7) k/uL Lymphocytes # (1.0-4.8) k/uL Monocytes # (0-1.0) k/uL Eosinophils # (0-0.7) k/uL Basophils # (0-0.2) k/uL PT (9.0-12.0) sec INR (<1.2) APTT (22.0-30.0) sec Sodium (137-145) mmol/L Potassium (3.5-5.1) mmol/L Chloride (98-107) mmol/L Carbon Dioxide (22-30) mmol/L Anion Gap mmol/L BUN (7-17) mg/dL Creatinine (0.52-1.04) mg/dL Est GFR (CKD-EPI)AfAm (>60 ml/min/1.73 sqM) Est GFR (CKD-EPI)NonAf (>60 ml/min/1.73 sqM) Glucose (74-99) mg/dL Calcium (8.4-10.2) mg/dL Total Bilirubin (0.2-1.3) mg/dL AST (14-36) U/L ALT (9-52) U/L Alkaline Phosphatase (38-126) U/L Troponin I (0.000-0.034) ng/mL Total Protein (6.3-8.2) g/dL Albumin (3.5-5.0) g/dL Amylase (30-110) U/L Lipase (23-300) U/L TSH (0.465-4.680) mIU/L Urine Color Urine Appearance (Clear) Urine pH (5.0-8.0) Ur Specific [place] (1.001-1.035) Urine Protein (Negative) Urine Glucose (UA) (Negative) Urine Ketones (Negative) Urine Blood (Negative) Urine Nitrite (Negative) Urine Bilirubin (Negative) Urine Urobilinogen (<2.0) mg/dL Ur Leukocyte Esterase (Negative) Ur Squamous Epith Cells (0-4) /hpf Amorphous Sediment (None) /hpf Urine Bacteria (None) /hpf Urine Mucus (None) /hpf Urine HCG, Qual (Not Detectd) Stool Occult Blood Negative (Negative) Blood Type Blood Type Confirm Blood Type Recheck Antibody Screen Spec Expiration Date Disposition Clinical Impression: Abdominal pain Disposition: HOME SELF-CARE Condition: Good Instructions (If sedation given, give patient instructions): Abdominal Pain (ED) Additional Instructions: Please follow up with primary care and GI in 1-2 days. Please return here to the emergency department if you have any worsening symptoms. Is patient prescribed a controlled substance at d/c from ED?: No Referrals: Nilo Noe MD [Primary Care Provider] - 1-2 days Lorraine Davis MD [STAFF PHYSICIAN] - 1-2 days Time of Disposition: 18:39
--- NOTE | 2019-04-28 16:57 | XR ---
EXAMINATION TYPE: XR KUB DATE OF EXAM: 04/28/2019 4:51 PM CLINICAL HISTORY: Bloody stool with abdominal pain for a few weeks. TECHNIQUE: Two Upright KUB images of the abdomen are obtained. COMPARISON: None. FINDINGS: Scattered gas is seen in non-distended stomach and small bowel loops. Gas and fecal materia l is seen in non-distended colon. There is no visceromegaly, pneumoperitoneum, or abnormal calcificat ion appreciated. The lung bases are clear and the osseous structures are intact. IMPRESSION: Overall nonobstructive bowel gas pattern.
[2019-04-28 17:21] LABS: Amorphous Sediment,Urine Rare /hpf; Appearance,Urine Cloudy (Clear); Bacteria,Urine Moderate /hpf; Bilirubin,Urine Negative (Negative); Blood,Urine Negative (Negative); Color,Urine Light Yellow; Glucose,Urine (UA) Negative (Negative); Ketones,Urine Negative (Negative); Leukocyte Esterase,Urine Negative (Negative); Mucus,Urine Rare /hpf; Nitrite,Urine Negative (Negative); Protein,Urine Negative (Negative); Specific Gravity,Urine 1.011 (1.001-1.035); Squamous Epithelial Cell,Urine 2 /hpf (0-4); Urobilinogen,Urine <2.0 mg/dL (<2.0)
[2019-04-28] MEDS ORDERED: KETOROLAC 30 MG/ML 1 ML VIAL IVP STA (17:30)
[2019-04-28] MEDS ORDERED: HYDROcodone/APAP 5-325MG 1 EACH TAB PO STA (18:39)
[2019-04-28 19:19] VITALS: BP 114/74; PULSE 55; TEMP 97.9
== END 2019-04-28 19:23 | disposition home or self-care (01) ==
LOC: EC 15:23
DX: R10.13 Epigastric pain (principal); R10.12 Left upper quadrant pain; R10.32 Left lower quadrant pain; R07.9 Chest pain, unspecified; K92.1 Melena; R00.2 Palpitations; E04.1 Nontoxic single thyroid nodule; F41.9 Anxiety disorder, unspecified; F32.9 Major depressive disorder, single episode, unspecified; Z90.49 Acquired absence of other specified parts of digestive tract; Z90.710 Acquired absence of both cervix and uterus; Z79.890 Hormone replacement therapy; Z79.899 Other long term (current) drug therapy; Z88.1 Allergy status to other antibiotic agents; Z53.29 Procedure and treatment not carried out because of patient's decision for other reasons
CPT/HCPCS: 36415; 93005; 86900; 86901; 80053; 82150; 83690; 84443; 84484; 85025; 85610; 85730; 86850; 82272; 81001; 81025; 74018; 99284; 96374; 96375; 96361; J1885; C9113

== ENCOUNTER 2019-05-03 01:02 | Emergency (ER) | payer MEDICAID ==
[2019-05-03 01:09] VITALS: TEMP 97.9
[2019-05-03] MEDS ORDERED: SODIUM CHLORIDE 0.9% 1,000 ML IV STA (01:31)
[2019-05-03] MEDS ORDERED: HYDROmorphone 0.5 MG/0.5 ML SYRINGE IVP STA (01:31)
[2019-05-03] MEDS ORDERED: ONDANSETRON 4 MG/2 ML VIAL IVP STA (01:31)
[2019-05-03] MEDS: DICYCLOMINE 10 MG/ML 2 ML AMP IM STA ×2 (02:02→02:50)
[2019-05-03 02:10] LABS: Basophils % (A) 1 %; Eosinophils # (A) 0.1 k/uL (0-0.7); Eosinophils % (A) 1 %; HCT 39.6 % (34.0-46.0); HGB 13.3 gm/dL (11.4-16.0); Lymphocytes # (A) 2.3 k/uL (1.0-4.8); Lymphocytes % (A) 27 %; MCH 29.8 pg (25.0-35.0); MCHC 33.6 g/dL (31.0-37.0); MCV 88.9 fL (80.0-100.0); Mean Platelet Volume 7.2; Monocytes # (A) 0.5 k/uL (0-1.0); Monocytes % (A) 6 %; Neutrophils # (A) 5.3 k/uL (1.3-7.7); Neutrophils % (A) 63 %; Platelet Count 313 k/uL (150-450); RBC 4.46 m/uL (3.80-5.40); RDW 13.4 % (11.5-15.5); WBC 8.4 k/uL (3.8-10.6)
[2019-05-03 02:13] LABS: ALT 26 U/L (9-52); AST 19 U/L (14-36); Albumin 4.4 g/dL (3.5-5.0); Alkaline Phosphatase 68 U/L (38-126); Amylase 30 U/L (30-110); Anion Gap 9 mmol/L; Blood Urea Nitrogen 8 mg/dL (7-17); Calcium 9.7 mg/dL (8.4-10.2); Carbon Dioxide 22 mmol/L (22-30); Chloride 108 mmol/L (98-107); Glucose 96 mg/dL (74-99); Lipase 41 U/L (23-300); Potassium 3.7 mmol/L (3.5-5.1); Sodium 139 mmol/L (137-145); Total Protein 6.9 g/dL (6.3-8.2)
[2019-05-03] MEDS ORDERED: DICYCLOMINE 20 MG TAB PO STA (02:37)
--- NOTE | 2019-05-03 02:37 | XR ---
EXAM: XR Abdomen, 1 View CLINICAL HISTORY: ITS.REASON XR Reason: abdominal pain TECHNIQUE: Frontal supine view of the abdomen/pelvis. COMPARISON: 04/28/19 x-ray FINDINGS: Gastrointestinal tract: Unremarkable. No dilation. Bones/joints: No acute fracture. No dislocation. IMPRESSION: No acute findings.
--- NOTE | 2019-05-03 02:38 | ED ---
Abdominal Pain HPI - General Source: patient Mode of arrival: ambulatory Limitations: no limitations <Evelyne Matt - Last Filed: 05/03/19 03:38> <Davina Bustamante - Last Filed: 05/03/19 03:44> - General Chief Complaint: Abdominal Pain Stated Complaint: Abdominal Pain/swelling Time Seen by Provider: 05/03/19 01:11 - History of Present Illness Initial Comments: 38 year-old female patient presents to the emergency department today for evaluation of abdominal pain and bloating. Patient states around 10:30 this evening she started to have pain to her upper abdomen. Patient states that within 45 minutes her abdomen became bloated. States she has been nauseated but has not vomited. States she is passing mucousy bowel movements, but very little stool. States that her appetite is diminished and she has barely eaten today. Denies any fever or chills. Denies any hematuria, dysuria, urinary frequency, urinary urgency. Patient states that she has been having issues intermittently over the last year. Patient states that she was seen and evaluated here approximately a week ago for similar symptoms. States that she was discharged and did follow-up with the GI specialist. States that she was diagnosed with irritable bowel syndrome. Patient states she is taking Zantac but no other medications for symptoms. Patient denies any recent rash, shortness breath, chest pain, back pain, numbness, tingling, dizziness, weakness, headache, visual changes, or any other complaints. (Evelyne Matt) - Related Data Home Medications Medication Instructions Recorded Confirmed Cholecalciferol [Vitamin D3] 2,000 unit PO QAM 08/02/17 03/09/19 Levothyroxine Sodium [Synthroid] 100 mcg PO QAM 12/18/18 03/09/19 ALPRAZolam [Xanax] 0.25 mg PO DAILY PRN 02/25/19 03/09/19 Famotidine [Pepcid AC] 10 mg PO DAILY PRN 02/25/19 03/09/19 Zoloft (Unknown Dose) 1 tab PO HS 02/25/19 03/09/19 Zolpidem Tartrate [Ambien] 5 mg PO HS PRN 02/25/19 03/09/19 acetaZOLAMIDE [Diamox Sequels] 500 mg PO PC-LUNCH 02/25/19 03/09/19 Multivitamins, Thera [Multivitamin 1 tab PO QAM 03/09/19 03/09/19 (formulary)] Rifaximin [Xifaxan] 550 mg PO TID 03/09/19 03/09/19 clonazePAM [KlonoPIN] 0.25 mg PO QAM 03/09/19 03/09/19 clonazePAM [KlonoPIN] 0.5 mg PO HS 03/09/19 03/09/19 Previous Rx's Medication Instructions Recorded Diphenox-Atrop 2.5-0.025 mg 1 - 2 tab PO QID PRN 3 Days #24 tab 02/25/19 [Lomotil] Dicyclomine [Bentyl] 20 mg PO QID #12 tablet 05/03/19 Allergies Allergy/AdvReac Type Severity Reaction Status Date / Time levofloxacin [From Levaquin] AdvReac Nausea & Verified 05/03/19 01:09 Vomiting & Diarrhea Review of Systems ROS Other: All systems not noted in ROS Statement are negative. <Evelyne Matt - Last Filed: 05/03/19 03:38> ROS Other: All systems not noted in ROS Statement are negative. <Davina Bustamante - Last Filed: 05/03/19 03:44> ROS Statement: Those systems with pertinent positive or pertinent negative responses have been documented in the HPI. Past Medical History Past Medical History: GERD/Reflux, Thyroid Disorder Additional Past Medical History / Comment(s): thyroid nodule. pseudotumor cerbri/idiopathic intracranial hypertension, irritable bowel, History of Any Multi-Drug Resistant Organisms: None Reported Past Surgical History: Appendectomy, Hysterectomy Additional Past Surgical History / Comment(s): Oophorectomy 2011. colonoscopy, egd Past Anesthesia/Blood Transfusion Reactions: Motion Sickness Past Psychological History: Anxiety, Depression Smoking Status: Never smoker Past Alcohol Use History: Rare Past Drug Use History: None Reported - Past Family History Mother Family Medical History: No Reported History Additional Family Medical History / Comment(s): maternal grandmother with breast cancer <Evelyne Matt - Last Filed: 05/03/19 03:38> General Exam Limitations: no limitations General appearance: alert, in no apparent distress, other (Physical well- developed, well-nourished adult female patient in no acute distress. Vital signs upon presentation are temperature 97.9F, pulse 69, respirations 18, blood pressure 125/81, pulse ox 97% on room air) Eye exam: Present: normal appearance, PERRL, EOMI. Absent: scleral icterus, conjunctival injection, periorbital swelling ENT exam: Present: normal exam, normal oropharynx, mucous membranes moist Respiratory exam: Present: normal lung sounds bilaterally. Absent: respiratory distress, wheezes, rales, rhonchi, stridor Cardiovascular Exam: Present: regular rate, normal rhythm, normal heart sounds. Absent: systolic murmur, diastolic murmur, rubs, gallop, clicks GI/Abdominal exam: Present: soft, distended, tenderness (Upper abdominal tenderness.), normal bowel sounds. Absent: guarding, rebound, rigid Neurological exam: Present: alert, oriented X3, CN II-XII intact Psychiatric exam: Present: normal affect, normal mood Skin exam: Present: warm, dry, intact, normal color. Absent: rash <Evelyne Matt - Last Filed: 05/03/19 03:38> Course Vital Signs 05/03/19 01:05 Temperature 97.9 F Pulse Rate 69 Respiratory 18 Rate Blood Pressure 125/81 O2 Sat by Pulse 97 Oximetry Medical Decision Making - Lab Data Result diagrams: 05/03/19 01:50 05/03/19 01:50 - EKG Data -: EKG Interpreted by [facility] - Radiology Data Radiology results: report reviewed, image reviewed <Evelyne Matt M - Last Filed: 05/03/19 03:38> - Lab Data Result diagrams: 05/03/19 01:50 05/03/19 01:50 <Davina Bustamante - Last Filed: 05/03/19 03:44> - Medical Decision Making 38-year-old female patient presents to the emergency department today for evaluation of abdominal pain and bloating. Physical examination did reveal upper abdominal tenderness. Labs reviewed and are unremarkable. X-ray was unremarkable. She is afebrile. Vital signs are within normal ranges other than her heart rate which exhibited some a symptomatically bradycardia. Patient was given half a milligram of Dilaudid and Bentyl here in the emergency department. Upon reevaluation she states symptoms are improved. Patient symptoms are consistent with irritable bowel syndrome. She'll be given a prescription for Bentyl. She is instructed to keep a food/symptom diary to take with her to her next GI appointment which is in 1 month. She is instructed to follow-up with her primary care physician for recheck in 1-2 days. Return parameters were discussed in detail. She verbalizes understanding and agrees with this plan. (Evelyne Matt) I was available for consultation in the emergency department. The history and physical exam were done by the midlevel provider. I was consulted for this patient's care. I reviewed the case with the midlevel provider and based on their presentation of the patient, I agree with the assessment, medical decision making and plan of care as documented. Chart was dictated using [employer] dictation software. Attempts were made to correct any dictation errors however some typographical errors may persist. (Daivna Bustamante) - Lab Data Lab Results 05/03/19 05/03/19 05/03/19 Range/Units 01:50 01:50 01:50 WBC 8.4 (3.8-10.6) k/uL RBC 4.46 (3.80-5.40) m/uL Hgb 13.3 (11.4-16.0) gm/dL Hct 39.6 (34.0-46.0) % MCV 88.9 (80.0-100.0) fL MCH 29.8 (25.0-35.0) pg MCHC 33.6 (31.0-37.0) g/dL RDW 13.4 (11.5-15.5) % Plt Count 313 (150-450) k/uL Neutrophils % 63 % Lymphocytes % 27 % Monocytes % 6 % Eosinophils % 1 % Basophils % 1 % Neutrophils # 5.3 (1.3-7.7) k/uL Lymphocytes # 2.3 (1.0-4.8) k/uL Monocytes # 0.5 (0-1.0) k/uL Eosinophils # 0.1 (0-0.7) k/uL Basophils # 0.0 (0-0.2) k/uL Sodium 139 (137-145) mmol/L Potassium 3.7 (3.5-5.1) mmol/L Chloride 108 H (98-107) mmol/L Carbon Dioxide 22 (22-30) mmol/L Anion Gap 9 mmol/L BUN 8 (7-17) mg/dL Creatinine 0.63 (0.52-1.04) mg/dL Est GFR (CKD-EPI)AfAm >90 (>60 ml/min/1.73 sqM) Est GFR (CKD-EPI)NonAf >90 (>60 ml/min/1.73 sqM) Glucose 96 (74-99) mg/dL Calcium 9.7 (8.4-10.2) mg/dL Total Bilirubin 1.0 (0.2-1.3) mg/dL AST 19 (14-36) U/L ALT 26 (9-52) U/L Alkaline Phosphatase 68 (38-126) U/L Troponin I <0.012 (0.000-0.034) ng/mL Total Protein 6.9 (6.3-8.2) g/dL Albumin 4.4 (3.5-5.0) g/dL Amylase 30 (30-110) U/L Lipase 41 (23-300) U/L Urine Color Urine Appearance (Clear) Urine pH (5.0-8.0) Ur Specific Peck (1.001-1.035) Urine Protein (Negative) Urine Glucose (UA) (Negative) Urine Ketones (Negative) Urine Blood (Negative) Urine Nitrite (Negative) Urine Bilirubin (Negative) Urine Urobilinogen (<2.0) mg/dL Ur Leukocyte Esterase (Negative) 05/03/19 Range/Units 02:50 WBC (3.8-10.6) k/uL RBC (3.80-5.40) m/uL Hgb (11.4-16.0) gm/dL Hct (34.0-46.0) % MCV (80.0-100.0) fL MCH (25.0-35.0) pg MCHC (31.0-37.0) g/dL RDW (11.5-15.5) % Plt Count (150-450) k/uL Neutrophils % % Lymphocytes % % Monocytes % % Eosinophils % % Basophils % % Neutrophils # (1.3-7.7) k/uL Lymphocytes # (1.0-4.8) k/uL Monocytes # (0-1.0) k/uL Eosinophils # (0-0.7) k/uL Basophils # (0-0.2) k/uL Sodium (137-145) mmol/L Potassium (3.5-5.1) mmol/L Chloride (98-107) mmol/L Carbon Dioxide (22-30) mmol/L Anion Gap mmol/L BUN (7-17) mg/dL Creatinine (0.52-1.04) mg/dL Est GFR (CKD-EPI)AfAm (>60 ml/min/1.73 sqM) Est GFR (CKD-EPI)NonAf (>60 ml/min/1.73 sqM) Glucose (74-99) mg/dL Calcium (8.4-10.2) mg/dL Total Bilirubin (0.2-1.3) mg/dL AST (14-36) U/L ALT (9-52) U/L Alkaline Phosphatase (38-126) U/L Troponin I (0.000-0.034) ng/mL Total Protein (6.3-8.2) g/dL Albumin (3.5-5.0) g/dL Amylase (30-110) U/L Lipase (23-300) U/L Urine Color Light Yellow Urine Appearance Clear (Clear) Urine pH 5.5 (5.0-8.0) Ur Specific Peck 1.008 (1.001-1.035) Urine Protein Negative (Negative) Urine Glucose (UA) Negative (Negative) Urine Ketones Negative (Negative) Urine Blood Negative (Negative) Urine Nitrite Negative (Negative) Urine Bilirubin Negative (Negative) Urine Urobilinogen <2.0 (<2.0) mg/dL Ur Leukocyte Esterase Negative (Negative) - EKG Data EKG Comments: EKG obtained at shows sinus bradycardia with a ventricular rate of 46, IL interval 158, QRS duration 86, QTc 456, QTC 399. No evidence of ST elevation or depression. (Evelyne Matt) - Radiology Data One view x-ray of the abdomen is obtained. Report was reviewed in its entirety. Impression by Dr. Torres shows no acute findings. (Evelyne Matt) Disposition Is patient prescribed a controlled substance at d/c from ED?: No Time of Disposition: 03:34 <Evelyne Matt - Last Filed: 05/03/19 03:38> <Davina Bustamante - Last Filed: 05/03/19 03:44> Clinical Impression: Abdominal pain Disposition: HOME SELF-CARE Condition: Good Instructions (If sedation given, give patient instructions): Abdominal Pain (ED) Additional Instructions: Increase fluids. Continue zantac. Start bentyl. Keep food and symptom diary to take with you to your next GI appointment. Follow-up with your primary care physician for recheck in 1-2 days. Return to the emergency department immediately for any new, worsening, or concerning symptoms. Prescriptions: Dicyclomine [Bentyl] 20 mg PO QID #12 tablet Referrals: Nilo Noe MD [Primary Care Provider] - 1-2 days Lorraine Davis MD [STAFF PHYSICIAN] - 1-2 days
[2019-05-03 03:00] LABS: Appearance,Urine Clear (Clear); Bilirubin,Urine Negative (Negative); Blood,Urine Negative (Negative); Color,Urine Light Yellow; Glucose,Urine (UA) Negative (Negative); Ketones,Urine Negative (Negative); Leukocyte Esterase,Urine Negative (Negative); Nitrite,Urine Negative (Negative); PH, Urine 5.5 (5.0-8.0); Protein,Urine Negative (Negative); Specific Gravity,Urine 1.008 (1.001-1.035); Urobilinogen,Urine <2.0 mg/dL (<2.0)
[2019-05-03 04:00] VITALS: BP 133/72; PULSE 62; RESP 16
== END 2019-05-03 03:59 | disposition home or self-care (01) ==
LOC: EC 01:02
DX: R10.10 Upper abdominal pain, unspecified (principal); E07.9 Disorder of thyroid, unspecified; F32.9 Major depressive disorder, single episode, unspecified; F41.9 Anxiety disorder, unspecified; Z79.890 Hormone replacement therapy; Z79.899 Other long term (current) drug therapy; Z88.1 Allergy status to other antibiotic agents; Z90.49 Acquired absence of other specified parts of digestive tract; Z53.8 Procedure and treatment not carried out for other reasons
CPT/HCPCS: 36415; 93005; 80053; 82150; 83690; 84484; 85025; 81003; 74018; 99284; 96374; 96375; 96361; J2405; J1170

== ENCOUNTER → 2019-05-03 | Outpatient (CLI) | payer MEDICAID ==
--- NOTE | 2019-05-03 15:19 | MR ---
EXAMINATION TYPE: MR iac wo/w con DATE OF EXAM: 05/03/2019 COMPARISON: None HISTORY: FULLNESS IN RIGHT EAR, DIZZINESS CONTRAST: Performed utilizing 7.5 mL intravenous Gadavist gadolinium contrast. TECHNIQUE: Multiplanar, multiecho imaging on a 3.0 Stacey magnet is performed through the brain. Atte ntion is paid to the internal auditory canals with thin section imaging. Postcontrast imaging is per formed through the internal auditory canals. FINDINGS:Craniovertebral junction is normal. The pituitary is normal. Diffusion-weighted imaging is performed. No suspicious hyperintensity is present to suggest an acute intracranial infarct or acute ischemic area. Signal within the brain is mildly increased in the periventricular white matter diffusely. There are a few scattered focal areas of hyperintensity periventricular deep white matter. Findings are nonspec ific but can be related to microvascular ischemic changes. Thin section imaging is performed through the internal auditory canals and cerebellar pontine angles. No cerebellar pontine angle masses are evident. The internal auditory canals appear normal without expansion or erosion. Postcontrast imaging was performed. No suspicious enhancement is evident within the internal audito ry canals or the included portions of the brain. Cerebellar pontine angles appear without abnormal e nhancement. IMPRESSIONS: 1. No suspicious internal auditory canal abnormality to account for fullness in right ear or dizzines s. 2. Patchy periventricular white matter changes out of proportion to the patient age. Findings are non specific and non-acute. Consider microvascular ischemic change within the differential. This is atypi rui presentation for multiple sclerosis which could be considered within the differential. Vasculitis and other etiologies for gliosis should be considered. Consider unusual forms of gliosis such as ENRIQUE M although the distribution is also atypical.
== END ==
LOC: RADMRIMAIN 13:26
PROVIDERS: ATTEND Otolaryngology Facial Plastic Surgery
DX: R90.89 Other abnormal findings on diagnostic imaging of central nervous system (principal)
CPT/HCPCS: 70553; A9585

== ENCOUNTER 2019-05-04 23:27 | Emergency (ER) | payer MEDICAID ==
[2019-05-04 23:38] VITALS: RESP 18; TEMP 98.3
[2019-05-05] MEDS ORDERED: SODIUM CHLORIDE 0.9% 1,000 ML IV STA (00:34)
[2019-05-05 01:00] LABS: Appearance,Urine Clear (Clear); Bilirubin,Urine Negative (Negative); Blood,Urine Negative (Negative); Color,Urine Light Yellow; Glucose,Urine (UA) Negative (Negative); Ketones,Urine Negative (Negative); Leukocyte Esterase,Urine Negative (Negative); Nitrite,Urine Negative (Negative); PH, Urine 5.5 (5.0-8.0); Protein,Urine Negative (Negative); Specific Gravity,Urine 1.009 (1.001-1.035); Urobilinogen,Urine <2.0 mg/dL (<2.0)
[2019-05-05 01:05] LABS: ALT 63 U/L (9-52); AST 30 U/L (14-36); Albumin 5.2 g/dL (3.5-5.0); Alkaline Phosphatase 84 U/L (38-126); Anion Gap 11 mmol/L; Blood Urea Nitrogen 11 mg/dL (7-17); Calcium 10.2 mg/dL (8.4-10.2); Carbon Dioxide 23 mmol/L (22-30); Chloride 106 mmol/L (98-107); Glucose 93 mg/dL (74-99); Lipase 57 U/L (23-300); Potassium 4.3 mmol/L (3.5-5.1); Sodium 140 mmol/L (137-145); Total Bilirubin 0.8 mg/dL (0.2-1.3); Total Protein 8.2 g/dL (6.3-8.2)
[2019-05-05 01:11] LABS: Basophils # (A) 0.1 k/uL (0-0.2); Basophils % (A) 1 %; Eosinophils # (A) 0.1 k/uL (0-0.7); Eosinophils % (A) 1 %; HCT 45.5 % (34.0-46.0); HGB 14.8 gm/dL (11.4-16.0); Lymphocytes # (A) 2.2 k/uL (1.0-4.8); Lymphocytes % (A) 21 %; MCH 29.8 pg (25.0-35.0); MCHC 32.5 g/dL (31.0-37.0); MCV 91.6 fL (80.0-100.0); Mean Platelet Volume 7.5; Monocytes # (A) 0.7 k/uL (0-1.0); Monocytes % (A) 6 %; Neutrophils # (A) 7.3 k/uL (1.3-7.7); Neutrophils % (A) 69 %; Platelet Count 331 k/uL (150-450); RBC 4.97 m/uL (3.80-5.40); RDW 14.4 % (11.5-15.5); WBC 10.4 k/uL (3.8-10.6)
--- NOTE | 2019-05-05 01:49 | XR ---
EXAM: XR Lumbar Spine, 2 or 3 Views CLINICAL HISTORY: ITS.REASON XR Reason: Pain TECHNIQUE: Frontal and lateral views of the lumbar spine. COMPARISON: Abdominal radiographs 05/03/2019. FINDINGS: Vertebrae: Unremarkable. No acute fracture. Normal alignment. Disc spaces: No acute findings. No significant narrowing. Soft tissues: Unremarkable. IMPRESSION: No acute osseous abnormality.
[2019-05-05] MEDS ORDERED: KETOROLAC 30 MG/ML 1 ML VIAL IVP STA (01:53)
--- NOTE | 2019-05-05 03:19 | ED ---
General Adult HPI - General Source: patient, RN notes reviewed, old records reviewed Mode of arrival: ambulatory Limitations: no limitations <Curry Dillon - Last Filed: 05/05/19 03:38> <Davina Bustamante - Last Filed: 05/07/19 06:01> - General Chief complaint: Abdominal Pain Stated complaint: Back pain,diarrhea Time Seen by Provider: 05/05/19 00:30 - History of Present Illness Initial comments: 38-year-old female patient in CDU of multiple complaints. Patient reports that she has had chronic diarrhea for over one month, however has been worse the last 2 days. Patient just complains of some mild right paralumbar low back pain. Patient also states that she has some pain with urination. Patient describes some mild chest heaviness. Denies any chest pain or significant shortness of breath. Patient has been evaluated for these complaints recently states that she has reportedly had 2 CT abdomen pelvis within that last 6 months that did not display acute pathlogy. Denies all other complaints. Systemic: Pt denies fatigue, fever/chills, rash. Pt denies weakness, night sweats, weight loss. Neuro: Pt denies headache, visual disturbances, syncope or pre-syncope. HEENT: Pt denies ocular discharge or irritation, otalgia, rhinorrhea, pharyngitis or notable lymphadenopathy. Cardiopulmonary: Pt denies chest pain, SOB, heart palpitations, dyspnea on exertion. Abdominal/GI: Pt denies abdominal pain, vomitting or diarrhea. : Pt denies dysuria, burning w/ urination, frequency/urgency. Denies new onset urinary or bowel incontinence. MSK: Pt denies myalgia, loss of strength or function in extremities. Neuro: Pt denies new onset weakness, paresthesias. (Curry Dillon) - Related Data Home Medications Medication Instructions Recorded Confirmed Cholecalciferol [Vitamin D3] 2,000 unit PO QAM 08/02/17 03/09/19 Levothyroxine Sodium [Synthroid] 100 mcg PO QAM 12/18/18 03/09/19 ALPRAZolam [Xanax] 0.25 mg PO DAILY PRN 02/25/19 03/09/19 Famotidine [Pepcid AC] 10 mg PO DAILY PRN 02/25/19 03/09/19 Zoloft (Unknown Dose) 1 tab PO HS 02/25/19 03/09/19 Zolpidem Tartrate [Ambien] 5 mg PO HS PRN 02/25/19 03/09/19 acetaZOLAMIDE [Diamox Sequels] 500 mg PO PC-LUNCH 02/25/19 03/09/19 Multivitamins, Thera [Multivitamin 1 tab PO QAM 03/09/19 03/09/19 (formulary)] Rifaximin [Xifaxan] 550 mg PO TID 03/09/19 03/09/19 clonazePAM [KlonoPIN] 0.25 mg PO QAM 03/09/19 03/09/19 clonazePAM [KlonoPIN] 0.5 mg PO HS 03/09/19 03/09/19 Previous Rx's Medication Instructions Recorded Diphenox-Atrop 2.5-0.025 mg 1 - 2 tab PO QID PRN 3 Days #24 tab 02/25/19 [Lomotil] Dicyclomine [Bentyl] 20 mg PO QID #12 tablet 05/03/19 Allergies Allergy/AdvReac Type Severity Reaction Status Date / Time levofloxacin [From Levaquin] AdvReac Nausea & Verified 05/03/19 01:09 Vomiting & Diarrhea Review of Systems ROS Other: All systems not noted in ROS Statement are negative. <Curry Dillon - Last Filed: 05/05/19 03:38> ROS Other: All systems not noted in ROS Statement are negative. <Davina Bustamante - Last Filed: 05/07/19 06:01> ROS Statement: Those systems with pertinent positive or pertinent negative responses have been documented in the HPI. Past Medical History Past Medical History: GERD/Reflux, Thyroid Disorder Additional Past Medical History / Comment(s): thyroid nodule. pseudotumor cerbri/idiopathic intracranial hypertension, irritable bowel,. MRI- Showed "White Matter Changes" History of Any Multi-Drug Resistant Organisms: None Reported Past Surgical History: Appendectomy, Hysterectomy Additional Past Surgical History / Comment(s): Oophorectomy 2012. colonoscopy, egd Past Anesthesia/Blood Transfusion Reactions: Motion Sickness Past Psychological History: Anxiety, Depression Smoking Status: Never smoker Past Alcohol Use History: Rare Past Drug Use History: None Reported - Past Family History Mother Family Medical History: No Reported History Additional Family Medical History / Comment(s): maternal grandmother with breast cancer <Curry Dillon - Last Filed: 05/05/19 03:38> General Exam Limitations: no limitations <Curry Dillon - Last Filed: 05/05/19 03:38> - General Exam Comments Initial Comments: Constitutional: NAD, AOX3, Pt has pleasant affect. HEENT: NC/AT, trachea midline, neck supple, no lymphadenopathy. Posterior pharynx non erythematous, without exudates. External ears appear normal, without discharge. Mucous membranes moist. Eyes PERRLA, EOM intact. There is no scleral icterus. No pallor noted. Cardiopulmonary: RRR, no murmurs, rubs or gallops, no JVD noted. Lungs CTAB in anterior and posterior quintanilla. No peripheral edema. Abdominal exam: Abdomen soft and non-distended. Abdomen non-tender to palpation in all 4 quadrants. Bowel sounds active in LLQ. No hepatosplenomegaly. No ecchymosis Neuro: CN II-XII grossly intact. No nuchal rigidity. No raccon eyes, no larkin sign, no hemotympanum. No cervical spinal tenderness. MSK: No cervical, thoracicl lumbar tenderness to palpation. No posterior calf tenderness bilaterally, homans sign negative bilaterally. Posterior tibialis and radial pulse +2 bilaterally. Sensation intact in upper and lower extremities. Full active ROM in upper and lower extremities, 5/5 stregnth. (Curry Dillon) Course Vital Signs 05/04/19 05/05/19 23:34 03:40 Temperature 98.3 F Pulse Rate 67 55 L Respiratory 18 18 Rate Blood Pressure 115/72 104/78 O2 Sat by Pulse 97 99 Oximetry Medical Decision Making - Lab Data Result diagrams: 05/05/19 00:45 05/05/19 00:45 <Curry Dillon - Last Filed: 05/05/19 03:38> - Lab Data Result diagrams: 05/05/19 00:45 05/05/19 00:45 <Davina Bustamante - Last Filed: 05/07/19 06:01> - Medical Decision Making 38-year-old female patient in CDU of multiple complaints. Patient reports that she has had chronic diarrhea for over one month, however has been worse the last 2 days. Patient just complains of some mild right paralumbar low back pain. Patient also states that she has some pain with urination. Patient describes some mild chest heaviness. Denies any chest pain or significant shortness of breath. Patient has been evaluated for these complaints recently states that she has reportedly had 2 CT abdomen pelvis within that last 6 months that did not display acute pathlogy. Denies all other complaints. Patient vital signs stable, afebrile. Physical examhe pathology. Abdomen soft, nontender to palpation. Investigations reveal nonpresent CBC, CMP, UA. HCG negative. Troponin negative. EKG negative for acute ischemia. Patient denied KUB or CT, plain film of lumbar spine didn't display acute pathology. Patient declined rectal exam. Pt will be discharged, will follow up with primary care provider in 1-2 days. Patient will return to ER if condition worsens in anyway. Case discussed with Dr. Bustamante. (Curry Dillon) I was available for consultation in the emergency department. The history and physical exam were done by the midlevel provider. I was consulted for this patient's care. I reviewed the case with the midlevel provider and based on their presentation of the patient, I agree with the assessment, medical decision making and plan of care as documented. Chart was dictated using [employer] dictation software. Attempts were made to correct any dictation errors however some typographical errors may persist. (Davina Bustamante) - Lab Data Lab Results 05/05/19 05/05/19 05/05/19 Range/Units 00:45 00:45 00:45 WBC 10.4 (3.8-10.6) k/uL RBC 4.97 (3.80-5.40) m/uL Hgb 14.8 (11.4-16.0) gm/dL Hct 45.5 (34.0-46.0) % MCV 91.6 (80.0-100.0) fL MCH 29.8 (25.0-35.0) pg MCHC 32.5 (31.0-37.0) g/dL RDW 14.4 (11.5-15.5) % Plt Count 331 (150-450) k/uL Neutrophils % 69 % Lymphocytes % 21 % Monocytes % 6 % Eosinophils % 1 % Basophils % 1 % Neutrophils # 7.3 (1.3-7.7) k/uL Lymphocytes # 2.2 (1.0-4.8) k/uL Monocytes # 0.7 (0-1.0) k/uL Eosinophils # 0.1 (0-0.7) k/uL Basophils # 0.1 (0-0.2) k/uL Sodium 140 (137-145) mmol/L Potassium 4.3 (3.5-5.1) mmol/L Chloride 106 (98-107) mmol/L Carbon Dioxide 23 (22-30) mmol/L Anion Gap 11 mmol/L BUN 11 (7-17) mg/dL Creatinine 0.77 (0.52-1.04) mg/dL Est GFR (CKD-EPI)AfAm >90 (>60 ml/min/1.73 sqM) Est GFR (CKD-EPI)NonAf >90 (>60 ml/min/1.73 sqM) Glucose 93 (74-99) mg/dL Plasma Lactic Acid [place] (0.7-2.0) mmol/L Calcium 10.2 (8.4-10.2) mg/dL Magnesium (1.6-2.3) mg/dL Total Bilirubin 0.8 (0.2-1.3) mg/dL AST 30 (14-36) U/L ALT 63 H (9-52) U/L Alkaline Phosphatase 84 (38-126) U/L Troponin I (0.000-0.034) ng/mL Total Protein 8.2 (6.3-8.2) g/dL Albumin 5.2 H (3.5-5.0) g/dL Lipase 57 (23-300) U/L Urine Color Urine Appearance (Clear) Urine pH (5.0-8.0) Ur Specific [place] (1.001-1.035) Urine Protein (Negative) Urine Glucose (UA) (Negative) Urine Ketones (Negative) Urine Blood (Negative) Urine Nitrite (Negative) Urine Bilirubin (Negative) Urine Urobilinogen (<2.0) mg/dL Ur Leukocyte Esterase (Negative) Urine HCG, Qual Not Detected (Not Detectd) 05/05/19 05/05/19 05/05/19 Range/Units 00:45 00:45 00:45 WBC (3.8-10.6) k/uL RBC (3.80-5.40) m/uL Hgb (11.4-16.0) gm/dL Hct (34.0-46.0) % MCV (80.0-100.0) fL MCH (25.0-35.0) pg MCHC (31.0-37.0) g/dL RDW (11.5-15.5) % Plt Count (150-450) k/uL Neutrophils % % Lymphocytes % % Monocytes % % Eosinophils % % Basophils % % Neutrophils # (1.3-7.7) k/uL Lymphocytes # (1.0-4.8) k/uL Monocytes # (0-1.0) k/uL Eosinophils # (0-0.7) k/uL Basophils # (0-0.2) k/uL Sodium (137-145) mmol/L Potassium (3.5-5.1) mmol/L Chloride (98-107) mmol/L Carbon Dioxide (22-30) mmol/L Anion Gap mmol/L BUN (7-17) mg/dL Creatinine (0.52-1.04) mg/dL Est GFR (CKD-EPI)AfAm (>60 ml/min/1.73 sqM) Est GFR (CKD-EPI)NonAf (>60 ml/min/1.73 sqM) Glucose (74-99) mg/dL Plasma Lactic Acid Camilo 0.9 (0.7-2.0) mmol/L Calcium (8.4-10.2) mg/dL Magnesium 2.3 (1.6-2.3) mg/dL Total Bilirubin (0.2-1.3) mg/dL AST (14-36) U/L ALT (9-52) U/L Alkaline Phosphatase (38-126) U/L Troponin I (0.000-0.034) ng/mL Total Protein (6.3-8.2) g/dL Albumin (3.5-5.0) g/dL Lipase (23-300) U/L Urine Color Light Yellow Urine Appearance Clear (Clear) Urine pH 5.5 (5.0-8.0) Ur Specific [place] 1.009 (1.001-1.035) Urine Protein Negative (Negative) Urine Glucose (UA) Negative (Negative) Urine Ketones Negative (Negative) Urine Blood Negative (Negative) Urine Nitrite Negative (Negative) Urine Bilirubin Negative (Negative) Urine Urobilinogen <2.0 (<2.0) mg/dL Ur Leukocyte Esterase Negative (Negative) Urine HCG, Qual (Not Detectd) 05/05/19 Range/Units 00:45 WBC (3.8-10.6) k/uL RBC (3.80-5.40) m/uL Hgb (11.4-16.0) gm/dL Hct (34.0-46.0) % MCV (80.0-100.0) fL MCH (25.0-35.0) pg MCHC (31.0-37.0) g/dL RDW (11.5-15.5) % Plt Count (150-450) k/uL Neutrophils % % Lymphocytes % % Monocytes % % Eosinophils % % Basophils % % Neutrophils # (1.3-7.7) k/uL Lymphocytes # (1.0-4.8) k/uL Monocytes # (0-1.0) k/uL Eosinophils # (0-0.7) k/uL Basophils # (0-0.2) k/uL Sodium (137-145) mmol/L Potassium (3.5-5.1) mmol/L Chloride (98-107) mmol/L Carbon Dioxide (22-30) mmol/L Anion Gap mmol/L BUN (7-17) mg/dL Creatinine (0.52-1.04) mg/dL Est GFR (CKD-EPI)AfAm (>60 ml/min/1.73 sqM) Est GFR (CKD-EPI)NonAf (>60 ml/min/1.73 sqM) Glucose (74-99) mg/dL Plasma Lactic Acid Camilo (0.7-2.0) mmol/L Calcium (8.4-10.2) mg/dL Magnesium (1.6-2.3) mg/dL Total Bilirubin (0.2-1.3) mg/dL AST (14-36) U/L ALT (9-52) U/L Alkaline Phosphatase (38-126) U/L Troponin I <0.012 (0.000-0.034) ng/mL Total Protein (6.3-8.2) g/dL Albumin (3.5-5.0) g/dL Lipase (23-300) U/L Urine Color Urine Appearance (Clear) Urine pH (5.0-8.0) Ur Specific [place] (1.001-1.035) Urine Protein (Negative) Urine Glucose (UA) (Negative) Urine Ketones (Negative) Urine Blood (Negative) Urine Nitrite (Negative) Urine Bilirubin (Negative) Urine Urobilinogen (<2.0) mg/dL Ur Leukocyte Esterase (Negative) Urine HCG, Qual (Not Detectd) Disposition Is patient prescribed a controlled substance at d/c from ED?: No <Curry Dillon - Last Filed: 05/05/19 03:38> <Davina Bustamante - Last Filed: 05/07/19 06:01> Clinical Impression: Diarrhea, Lumbar back pain Disposition: HOME SELF-CARE Condition: Stable Instructions (If sedation given, give patient instructions): Acute Diarrhea (ED) Additional Instructions: Patient to adhere to previously discussed treatment plan and will take medication(s) as directed. Patient to follow up with PCP in 1-2 days. Patient to return to ED if symptoms do not improve. FOLLOW UP WITH PRIMARY CARE PROVIDER IN 1-2 DAYS. RETURN TO ER IF CONDITION WORSENS IN ANYWAY. Referrals: Nilo Noe MD [Primary Care Provider] - 1-2 days
[2019-05-05 03:57] VITALS: BP 104/78; PULSE 55
--- NOTE | 2019-05-05 04:28 | ED ---
Medical Decision Making - Lab Data Result diagrams: 05/05/19 00:45 05/05/19 00:45 Lab Results 05/05/19 05/05/19 05/05/19 Range/Units 00:45 00:45 00:45 WBC 10.4 (3.8-10.6) k/uL RBC 4.97 (3.80-5.40) m/uL Hgb 14.8 (11.4-16.0) gm/dL Hct 45.5 (34.0-46.0) % MCV 91.6 (80.0-100.0) fL MCH 29.8 (25.0-35.0) pg MCHC 32.5 (31.0-37.0) g/dL RDW 14.4 (11.5-15.5) % Plt Count 331 (150-450) k/uL Neutrophils % 69 % Lymphocytes % 21 % Monocytes % 6 % Eosinophils % 1 % Basophils % 1 % Neutrophils # 7.3 (1.3-7.7) k/uL Lymphocytes # 2.2 (1.0-4.8) k/uL Monocytes # 0.7 (0-1.0) k/uL Eosinophils # 0.1 (0-0.7) k/uL Basophils # 0.1 (0-0.2) k/uL Sodium 140 (137-145) mmol/L Potassium 4.3 (3.5-5.1) mmol/L Chloride 106 (98-107) mmol/L Carbon Dioxide 23 (22-30) mmol/L Anion Gap 11 mmol/L BUN 11 (7-17) mg/dL Creatinine 0.77 (0.52-1.04) mg/dL Est GFR (CKD-EPI)AfAm >90 (>60 ml/min/1.73 sqM) Est GFR (CKD-EPI)NonAf >90 (>60 ml/min/1.73 sqM) Glucose 93 (74-99) mg/dL Plasma Lactic Acid Camilo (0.7-2.0) mmol/L Calcium 10.2 (8.4-10.2) mg/dL Magnesium (1.6-2.3) mg/dL Total Bilirubin 0.8 (0.2-1.3) mg/dL AST 30 (14-36) U/L ALT 63 H (9-52) U/L Alkaline Phosphatase 84 (38-126) U/L Troponin I (0.000-0.034) ng/mL Total Protein 8.2 (6.3-8.2) g/dL Albumin 5.2 H (3.5-5.0) g/dL Lipase 57 (23-300) U/L Urine Color Urine Appearance (Clear) Urine pH (5.0-8.0) Ur Specific [place] (1.001-1.035) Urine Protein (Negative) Urine Glucose (UA) (Negative) Urine Ketones (Negative) Urine Blood (Negative) Urine Nitrite (Negative) Urine Bilirubin (Negative) Urine Urobilinogen (<2.0) mg/dL Ur Leukocyte Esterase (Negative) Urine HCG, Qual Not Detected (Not Detectd) 05/05/19 05/05/19 05/05/19 Range/Units 00:45 00:45 00:45 WBC (3.8-10.6) k/uL RBC (3.80-5.40) m/uL Hgb (11.4-16.0) gm/dL Hct (34.0-46.0) % MCV (80.0-100.0) fL MCH (25.0-35.0) pg MCHC (31.0-37.0) g/dL RDW (11.5-15.5) % Plt Count (150-450) k/uL Neutrophils % % Lymphocytes % % Monocytes % % Eosinophils % % Basophils % % Neutrophils # (1.3-7.7) k/uL Lymphocytes # (1.0-4.8) k/uL Monocytes # (0-1.0) k/uL Eosinophils # (0-0.7) k/uL Basophils # (0-0.2) k/uL Sodium (137-145) mmol/L Potassium (3.5-5.1) mmol/L Chloride (98-107) mmol/L Carbon Dioxide (22-30) mmol/L Anion Gap mmol/L BUN (7-17) mg/dL Creatinine (0.52-1.04) mg/dL Est GFR (CKD-EPI)AfAm (>60 ml/min/1.73 sqM) Est GFR (CKD-EPI)NonAf (>60 ml/min/1.73 sqM) Glucose (74-99) mg/dL Plasma Lactic Acid Camilo 0.9 (0.7-2.0) mmol/L Calcium (8.4-10.2) mg/dL Magnesium 2.3 (1.6-2.3) mg/dL Total Bilirubin (0.2-1.3) mg/dL AST (14-36) U/L ALT (9-52) U/L Alkaline Phosphatase (38-126) U/L Troponin I (0.000-0.034) ng/mL Total Protein (6.3-8.2) g/dL Albumin (3.5-5.0) g/dL Lipase (23-300) U/L Urine Color Light Yellow Urine Appearance Clear (Clear) Urine pH 5.5 (5.0-8.0) Ur Specific [place] 1.009 (1.001-1.035) Urine Protein Negative (Negative) Urine Glucose (UA) Negative (Negative) Urine Ketones Negative (Negative) Urine Blood Negative (Negative) Urine Nitrite Negative (Negative) Urine Bilirubin Negative (Negative) Urine Urobilinogen <2.0 (<2.0) mg/dL Ur Leukocyte Esterase Negative (Negative) Urine HCG, Qual (Not Detectd) 05/05/19 Range/Units 00:45 WBC (3.8-10.6) k/uL RBC (3.80-5.40) m/uL Hgb (11.4-16.0) gm/dL Hct (34.0-46.0) % MCV (80.0-100.0) fL MCH (25.0-35.0) pg MCHC (31.0-37.0) g/dL RDW (11.5-15.5) % Plt Count (150-450) k/uL Neutrophils % % Lymphocytes % % Monocytes % % Eosinophils % % Basophils % % Neutrophils # (1.3-7.7) k/uL Lymphocytes # (1.0-4.8) k/uL Monocytes # (0-1.0) k/uL Eosinophils # (0-0.7) k/uL Basophils # (0-0.2) k/uL Sodium (137-145) mmol/L Potassium (3.5-5.1) mmol/L Chloride (98-107) mmol/L Carbon Dioxide (22-30) mmol/L Anion Gap mmol/L BUN (7-17) mg/dL Creatinine (0.52-1.04) mg/dL Est GFR (CKD-EPI)AfAm (>60 ml/min/1.73 sqM) Est GFR (CKD-EPI)NonAf (>60 ml/min/1.73 sqM) Glucose (74-99) mg/dL Plasma Lactic Acid [place]ilo (0.7-2.0) mmol/L Calcium (8.4-10.2) mg/dL Magnesium (1.6-2.3) mg/dL Total Bilirubin (0.2-1.3) mg/dL AST (14-36) U/L ALT (9-52) U/L Alkaline Phosphatase (38-126) U/L Troponin I <0.012 (0.000-0.034) ng/mL Total Protein (6.3-8.2) g/dL Albumin (3.5-5.0) g/dL Lipase (23-300) U/L Urine Color Urine Appearance (Clear) Urine pH (5.0-8.0) Ur Specific [place] (1.001-1.035) Urine Protein (Negative) Urine Glucose (UA) (Negative) Urine Ketones (Negative) Urine Blood (Negative) Urine Nitrite (Negative) Urine Bilirubin (Negative) Urine Urobilinogen (<2.0) mg/dL Ur Leukocyte Esterase (Negative) Urine HCG, Qual (Not Detectd) - EKG Data -: EKG Interpreted by Me (and dr henry) EKG Comments: Ventricular rate 50, SC interval 148, QRS 80, QT/QTc 438/399. Sinus br adycardia, otherwise normal EKG. No concern for acute ischemia. Disposition Clinical Impression: Diarrhea, Lumbar back pain Disposition: HOME SELF-CARE Condition: Stable Instructions (If sedation given, give patient instructions): Acute Diarrhea (ED) Additional Instructions: Patient to adhere to previously discussed treatment plan and will take medication(s) as directed. Patient to follow up with PCP in 1-2 days. Patient to return to ED if symptoms do not improve. FOLLOW UP WITH PRIMARY CARE PROVIDER IN 1-2 DAYS. RETURN TO ER IF CONDITION WORSENS IN ANYWAY. Is patient prescribed a controlled substance at d/c from ED?: No Referrals: Nilo Noe MD [Primary Care Provider] - 1-2 days
== END 2019-05-05 03:45 | disposition home or self-care (01) ==
LOC: EC 23:27
DX: M54.5 Low back pain (principal); R19.7 Diarrhea, unspecified; R00.1 Bradycardia, unspecified; R30.0 Dysuria; R07.89 Other chest pain; E04.1 Nontoxic single thyroid nodule; F32.9 Major depressive disorder, single episode, unspecified; F41.9 Anxiety disorder, unspecified; Z88.1 Allergy status to other antibiotic agents; Z79.890 Hormone replacement therapy; Z79.899 Other long term (current) drug therapy; Z87.19 Personal history of other diseases of the digestive system; Z90.49 Acquired absence of other specified parts of digestive tract; Z53.20 Procedure and treatment not carried out because of patient's decision for unspecified reasons
CPT/HCPCS: 36415; 93005; 80053; 83605; 83690; 83735; 84484; 85025; 81003; 81025; 72100; 99284; 96374; 96361; J1885

== ENCOUNTER → 2019-08-07 | Outpatient (CLI) | payer MEDICAID | END | disposition home or self-care (01) | LOC: LABWHC1 14:53 | PROVIDERS: ATTEND Internal Medicine Endocrinology, Diabetes & Metabolism | DX: E03.8 Other specified hypothyroidism (principal) | CPT/HCPCS: 36415; 84443 ==

== ENCOUNTER → 2020-05-12 | Outpatient (CLI) | payer MEDICAID | END | disposition home or self-care (01) | LOC: LABWHC1 13:34 | PROVIDERS: ATTEND Internal Medicine Endocrinology, Diabetes & Metabolism | DX: E03.8 Other specified hypothyroidism (principal); E55.9 Vitamin D deficiency, unspecified | CPT/HCPCS: 36415; 82306 ==

== ENCOUNTER → 2020-05-19 | Outpatient (CLI) | payer MEDICAID | END | disposition home or self-care (01) | LOC: LABWHC1 11:44 | PROVIDERS: ATTEND Internal Medicine Endocrinology, Diabetes & Metabolism | DX: E03.8 Other specified hypothyroidism (principal); E55.9 Vitamin D deficiency, unspecified | CPT/HCPCS: 84443 ==

== ENCOUNTER → 2020-08-22 | Outpatient (CLI) | payer MEDICAID | END | disposition home or self-care (01) | LOC: LABWHC1 14:58 | PROVIDERS: ATTEND Pediatrics Pediatric Infectious Diseases | DX: Z03.818 Encounter for observation for suspected exposure to other biological agents ruled out (principal) | CPT/HCPCS: U0003; C9803 ==

== ENCOUNTER 2021-01-01 06:58 | Day surgery (SDC) | payer MEDICAID ==
[2020-12-30 09:58] VITALS: BMI 34.7
[~2021-01-01 06:58] MED LIST changes: +DEXAMETHASONE SOD PHOSPHATE 4 MG/ML 1 ML VIAL IV ONE; +LACTATED RINGERS 1,000 ML IV SCH; +LIDOCAINE 1% (10MG/ML) FOR IV START INTRADERMA PRN; +MIDAZOLAM 2 MG/2 ML VIAL IV PRN; +ONDANSETRON 4 MG/2 ML VIAL IVP ONE; +Pre Op ABX Message 1 EACH MISC MISCELLANE ONE; -SODIUM CHLORIDE 0.9% 500 ML 500 ML IV SCH
[2021-01-01] MEDS ORDERED: SCOPOLAMINE 1.5MG/72HR PATCH TRANSDERM ONE (07:32)
[2021-01-01] MEDS ORDERED: LACTATED RINGERS 1,000 ML IV ONE ×3 (07:32→10:30)
[2021-01-01] MEDS ORDERED: FAMOTIDINE 20 MG/2 ML VIAL IVP ONE (07:50)
[2021-01-01] MEDS ORDERED: MIDAZOLAM 2 MG/2 ML VIAL ONE (08:16)
[2021-01-01] MEDS ORDERED: SUCCINYLCHOLINE CHLORIDE 100 MG/5 ML SYR IV ONE (08:16)
[2021-01-01] MEDS ORDERED: LIDOCAINE 1% INJ 10MG/ML (20 ML MDV) ONE (08:16)
[2021-01-01] MEDS ORDERED: diphenhydrAMINE 50 MG/ML 1 ML VIAL ONE (08:16)
[2021-01-01] MEDS ORDERED: PROPOFOL 10 MG/ML 20 ML VIAL IV ONE (08:16)
[2021-01-01] MEDS ORDERED: HYDROmorphone (PF) 1 MG/ML ONE (08:16)
[2021-01-01] MEDS ORDERED: fentaNYL (PF) 50 MCG/ML 2 ML AMP ONE (08:16)
[2021-01-01 10:46] VITALS: TEMP 97.3
[2021-01-01] MEDS ORDERED: ONDANSETRON 4 MG/2 ML VIAL IVP ONE (10:52)
[2021-01-01] MEDS: HYDROmorphone 0.5 MG/0.5 ML SYRINGE IVP PRN ×3 (10:55→11:30)
[2021-01-01] MEDS ORDERED: diphenhydrAMINE 50 MG/ML 1 ML VIAL IVP ONE (11:02)
[2021-01-01 12:05] VITALS: RESP 16
--- NOTE | 2021-01-01 12:11 | OP ---
OPERATIVE REPORT DATE OF PROCEDURE: 01/01/2021. SURGEON: Shahram Funez MD. NOCTURNIST: Gary MEDINA. PREOPERATIVE DIAGNOSES: 1. Right knee anterior cruciate ligament rupture. 2. Right knee medial meniscus tear. 3. Right knee lateral meniscus tear. POSTOPERATIVE DIAGNOSES: 1. Right knee complete anterior cruciate ligament rupture. 2. Right knee posterior horn medial meniscus tear. 3. Right knee posterior horn lateral meniscus tear. 4. Right knee thickened infrapatellar and medial shelf plica. PROCEDURE PERFORMED: 1. Right knee anterior cruciate ligament reconstruction with hamstring autograft. 2. Right knee arthroscopic partial lateral meniscectomy. 3. Right knee arthroscopic partial medial meniscectomy. 4. Right knee arthroscopic lysis of adhesions. ANESTHESIA: General endotracheal. ESTIMATED BLOOD LOSS: Less than 25 mL. TOURNIQUET TIME: Tourniquet time was 65 minutes at 250 mmHg. DRAINS: None. COMPLICATIONS: None apparent. DISPOSITION: Postanesthesia care unit. INDICATIONS: Prudence is a 40-year-old female who injured her right knee a few weeks ago playing [employer]. Physical examination and MRI are consistent with a complete rupture of the anterior cruciate ligament, tearing of the posterior horn of the medial meniscus and posterior horn lateral meniscus. I had a long discussion with her with regard to treatment options. At this point, she does wish to proceed with operative intervention. Risks were explained to the patient which include, but are not limited to risk of infection, nerve damage, bleeding, pain, instability, deep vein thrombosis which could lead to fatal pulmonary embolism and graft rerupture. The patient understands these risks and wished to proceed with surgical procedure. EXAMINATION UNDER ANESTHESIA: Range of motion: Right full, left full. Effusion: Right mild, left none. Chapin: Right increased 5 mm soft end point. Left normal with good end point. Pivot shift: Right grade 1, left grade 0. Posterior drawer: Right with good end point, left good end point. Varus laxity: Right none, left none. Valgus laxity: Right none, left none. External rotation: Right normal, left normal. ARTHROSCOPIC FINDINGS: Right knee suprapatellar pouch was normal. Medial gutter thickened. Medial shelf plica. Lateral gutter is normal. Patella normal chondral surfaces. Trochlea normal chondral surfaces. Patellar tracking is normal. Medial femoral condyle just mild grade 1 change on the weightbearing surface of medial femoral condyle. Medial tibial plateau normal chondral surfaces. Medial meniscus complex tear of the posterior horn of the medial meniscus. It was a vertical tear through the red-white junction with displaced flap tear. Lateral femoral condyle normal chondral surfaces. Lateral tibial plateau normal chondral surfaces. Lateral meniscus small flap tear of the posterior horn of the lateral meniscus. Anterior cruciate ligament: Complete midsubstance rupture of the anterior cruciate ligament. Posterior cruciate ligament was normal. Infrapatellar notch thickened for plica and dense infrapatellar adhesions. DETAILS OF THE PROCEDURE: The patient identified in the preoperative holding area. Surgical sites marked by both the patient and myself. She was given 2 grams of Ancef IV for prophylactic purposes. She was then transported to the operative suite. She was placed supine on the operating room table. A general anesthetic was then administered and dosed per the anesthesia department without apparent complication. An examination under anesthesia was then performed of both knees. The findings as noted above. Tourniquet was then placed high on the right upper thigh well-padded in preparation for surgery. The patient's right lower extremity was then prepped and draped in usual sterile fashion. Standard surgical pause was then undertaken to ensure that we were operating on the correct site and that appropriate preoperative antibiotics had been given. All staff in the room were in agreement and we proceeded. The knee was then insufflated with 120 mL sterile saline solution. This was done to gradually distend the joint. A standard inferolateral portal was then made. A 30- degree arthroscope was introduced into suprapatellar pouch. The arthroscopic pump pressure was set to 60 mmHg and maintained at that level throughout the entire case. Next utilizing an 18-gauge spinal needle to topically localize the placement, the inferomedial port was made under direct visualization. A standard diagnostic arthroscopy was then performed. Findings noted as above. Attention first drawn to the infrapatellar notch. Very thickened infrapatellar plica as well as dense infrapatellar adhesions. The remnants of the ruptured anterior cruciate ligament were also noted. The plica was released with a biter and debrided back to stable tissue utilizing synovial shaver. The infrapatellar adhesions were also lysed with a synovial shaver and hemostasis was achieved with the ArthroCare wand. Attention drawn to the lateral compartment. She had a small flap tear just to anterior aspect near the posterior root attachment of lateral meniscus. This was fairly macerated and deemed irreparable and this skin tear was then debrided with a combination of biter and synovial shaver back to stable tissue. Approximately 90% of the posterior horn of the lateral meniscus remained intact after debridement. The anterior and posterior root attachments were carefully inspected and found to be intact. Attention was drawn to the medial meniscus. She had a complex tear of the posterior horn of medial meniscus. It was a vertical tear, which was fairly macerated and detached. The tear was deemed irreparable. The meniscus tear was then debrided with a combination of biters and synovial shaver back to stable tissue. Approximately 50% of the posterior horn and middle body of the medial meniscus remained intact after debridement. The arthroscope was then placed medial to the posterior cruciate ligament through the notch and posteromedial compartment of the knee. There were no residual flap tears or loose bodies noted. The posterior root attachment was carefully inspected and found to be intact. At this point, we proceeded with harvesting of the hamstring tendons for autograft. The arthroscopic equipment was removed from the knee. The leg was then exsanguinated with an Esmarch dressing. The tourniquet was then inflated to 250 mmHg. A small longitudinal incision was then made approximately 1.5 cm medial to the tibial tubercle. Dissection was then carried down through the subcutaneous tissues until the sartorius tendon was identified. The sartorius was incised using an L-shaped incision. The sartorius tendon was then retracted and the gracilis and semitendinosus tendons were identified. These tendons were then tagged with 2-0 Vicryl sutures. The tendons were then released from their insertion onto the tibia and stripped of their soft tissue attachments using a blunt technique as well as using scissors. The tendons were then harvested using a closed tendon stripper. The tendons were then taken to the back table where muscle fibers were scraped off of the tendons. The ends of the tendons were then whipstitched using a #2 Orthocord suture. The tendons were then doubled to form a 4-stranded hamstring graft. The graft diameter was measured at 8 mm. A surgical orderly was critical at this portion of the case, as they provided adequate exposure to safely harvest the hamstring tendons. In addition, the assistant customer service manager completed the graft preparation allowing for decreased operating time further enhancing the safety procedure. Attention was then returned to the knee. The remnants of the anterior cruciate ligament were further debrided utilizing arthroscopic shaver. The Gonzalez ACL guide was then placed into the knee with the tip held flush against the lateral wall of the notch. The knee was then brought in full extension and the tibial guide pin was drilled from the anteromedial tibia into the knee. The knee was then flexed and the pin positioned arthroscopically assessed to ensure that was in the proper position. The tibial tunnel was then created using a cannulated reamer equal to the size of the hamstring graft, which was 8 mm. A minimal lateral notchplasty was then performed utilizing synovial shaver in a garrick-type fashion. The femoral origin of the anterior cruciate ligament was clearly identified. The femoral guide pin was then placed at the origin of the anterior cruciate ligament with planned back wall thickness of 1 mm. Femoral tunnel was then created with a cannulated reamer to a depth of 25 mm. The size of the reamer was again the same size as the hamstring graft, which was 8 mm. Next, a 4.5 mm cannulated drill was used to penetrate the lateral femoral cortex. The Biomet toggle lock femoral fixation device was opened. The graft was placed through the closed loop of the device. A Beath pin was passed through the tibial and femoral tunnels and out through the soft tissues of the lateral thigh. The lead sutures of the fixation device were then placed in the eyelet of the fixation device and advanced through the tunnels and soft tissues of the lateral thigh. The device was then advanced through the tunnels and locked on the lateral femoral cortex. The closed loop was then shortened and the graft advanced to the base of the femoral tunnel. Femoral fixation was excellent. The graft was then cycled 30 times. No impingement was noted on the intercondylar roof or lateral intercondylar wall. Tibial fixation was then achieved using a bioabsorbable Intrafix screw and sheath. This was performed at 20 degrees of flexion with a posterior drawer force applied to the tibia. This resulted in excellent fixation. The arthroscope was placed back into the knee and the graft again visualized. Tension in the graft seemed to be excellent. No impingement was noted. Full range of motion was noted. The Chapin test noted to be normal. At this point the arthroscopic equipment was removed from the knee. The tourniquet was deflated. Total tourniquet time for the procedure was 65 minutes. The tibial incision was then thoroughly irrigated. Next, the sartorius was closed with 2-0 Vicryl interrupted suture. The subcutaneous tissue closed with 2-0 Vicryl interrupted suture. The skin was closed with 3-0 nylon interrupted suture. The arthroscopic portals were closed with 3-0 nylon interrupted suture. Sterile compressive dressing was then applied. The patient was placed into a hinged knee brace, locked in full extension. The patient tolerated the procedure well and was transferred to the recovery room in good condition. REHAB PLAN: Routine anterior cruciate ligament reconstruction rehab protocol. MMODL / IJN: [id number] /
[2021-01-01] MEDS ORDERED: HYDROcodone/APAP 7.5-325MG 1 EACH TAB PO ONE (12:30)
[2021-01-01] MEDS ORDERED: HYDROcodone/APAP 7.5-325MG 1 EACH TAB ONE (12:35)
[2021-01-01 13:21] VITALS: BP 124/79; PULSE 83
== END 2021-01-01 13:40 | disposition home or self-care (01) ==
LOC: OR 06:58
PROVIDERS: ATTEND Orthopaedic Surgery Sports Medicine
DX: S83.511A Sprain of anterior cruciate ligament of right knee, initial encounter (principal); S83.241A Other tear of medial meniscus, current injury, right knee, initial encounter; S83.281A Other tear of lateral meniscus, current injury, right knee, initial encounter; M67.51 Plica syndrome, right knee; M23.8X1 Other internal derangements of right knee; Z79.890 Hormone replacement therapy; E03.9 Hypothyroidism, unspecified; K21.9 Gastro-esophageal reflux disease without esophagitis; Z86.69 Personal history of other diseases of the nervous system and sense organs; Z90.710 Acquired absence of both cervix and uterus; Z90.79 Acquired absence of other genital organ(s); Z87.891 Personal history of nicotine dependence; Z88.1 Allergy status to other antibiotic agents; Z79.899 Other long term (current) drug therapy; Z91.89 Other specified personal risk factors, not elsewhere classified; X50.1XXA Overexertion from prolonged static or awkward postures, initial encounter; Y93.73 Activity, racquet and hand sports
CPT/HCPCS: 27428; 29880; C1713; J2250; J1200; J1100; J0690; J2405; J2001; J3010; J1170 ×2; J0330; J2704; J1790

== ENCOUNTER 2021-01-05 19:43 | Emergency (ER) | payer MEDICAID ==
[2021-01-05 19:49] VITALS: TEMP 98.3
[2021-01-05] MEDS ORDERED: SODIUM CHLORIDE 0.9% 500 ML 500 ML IV STA (20:09)
--- NOTE | 2021-01-05 20:14 | ED ---
General Adult HPI - General Chief complaint: Chest Pain Stated complaint: Post op chest pain Time Seen by Provider: 01/05/21 19:57 Source: patient, family Mode of arrival: ambulatory Limitations: no limitations - History of Present Illness Initial comments: 40-year-old female with a past medical history of GERD, pseudotumor, irritable bowel presents to the emergency room for chest pain. Patient states she had some slight chest discomfort and low-grade fevers of 99.6 earlier today. She saw her doctor who ordered a d-dimer and put her on azithromycin. The results have not come back. Patient reports that 45 minutes ago she started to have sharp left-sided chest pain that worsens with deep breathing. Patient reports that she called her surgeon as she had an ACL and meniscus repair in the right knee on January 01 and was told they were concerned for blood clot. She was directed to come to the emergency room. Patient denies shortness of breath at this time. Does admit to slight sharp chest pain on the left side.Patient has no other complaints at this time including shortness of breath, abdominal pain, nausea or vomiting, headache, or visual changes. - Related Data Home Medications Medication Instructions Recorded Confirmed Acetaminophen Tab [Tylenol Tab] 500 mg PO DAILY PRN 12/30/20 01/05/21 Estrogens, Conjugated [Premarin] 0.3 mg PO DAILY 12/30/20 01/05/21 busPIRone HCl [Buspar] 5 mg PO HS 12/30/20 01/05/21 Melatonin 5 mg PO HS PRN 01/01/21 01/05/21 Azithromycin [Zithromax] 500 mg PO DAILY 01/05/21 01/05/21 Cholecalciferol [Vitamin D3 (25 50 mcg PO DAILY 01/05/21 01/05/21 Mcg = 1000 Iu)] HYDROcodone/APAP 7.5-325MG [[place] 1 - 2 tab PO Q6HR PRN 01/05/21 01/05/21 7.5-325] Levothyroxine Sodium [Synthroid] 88 mcg PO DAILY 01/05/21 01/05/21 hydrOXYzine HCL [Atarax] 25 mg PO DAILY PRN 01/05/21 01/05/21 Previous Rx's Medication Instructions Recorded Aspirin [Adult Low Dose Aspirin EC] 81 mg PO BID #60 tablet. 01/01/21 Apixaban [Eliquis Starter Pack 0 mg PO DIRECTED 30 Days #1 pack 01/05/21 (for VTE)] Allergies Allergy/AdvReac Type Severity Reaction Status Date / Time levofloxacin [From Levaquin] AdvReac Nausea & Verified 01/05/21 20:40 Vomiting & Diarrhea Review of Systems ROS Statement: Those systems with pertinent positive or pertinent negative responses have been documented in the HPI. ROS Other: All systems not noted in ROS Statement are negative. Past Medical History Past Medical History: GERD/Reflux, Thyroid Disorder Additional Past Medical History / Comment(s): thyroid nodule. hx pseudotumor cerbri/idiopathic intracranial hypertension, irritable bowel,. MRI- Showed "White Matter Changes" History of Any Multi-Drug Resistant Organisms: None Reported Past Surgical History: Appendectomy, Hysterectomy, Orthopedic Surgery Additional Past Surgical History / Comment(s): Oophorectomy 2011. colonoscopy, egd, jan 01 2021 right knee surgery Past Anesthesia/Blood Transfusion Reactions: Motion Sickness Past Psychological History: Anxiety, Depression Smoking Status: Former smoker Past Alcohol Use History: Occasional Past Drug Use History: None Reported - Past Family History Mother Family Medical History: No Reported History Additional Family Medical History / Comment(s): maternal grandmother with breast cancer General Exam Limitations: no limitations General appearance: alert, in no apparent distress Head exam: Present: atraumatic, normocephalic, normal inspection Eye exam: Present: normal appearance, PERRL, EOMI. Absent: scleral icterus, conjunctival injection ENT exam: Present: normal exam, mucous membranes moist Neck exam: Present: normal inspection, full ROM. Absent: tenderness Respiratory exam: Present: normal lung sounds bilaterally. Absent: respiratory distress, wheezes, rales, rhonchi, stridor Cardiovascular Exam: Present: regular rate, normal rhythm, normal heart sounds GI/Abdominal exam: Present: soft, normal bowel sounds. Absent: distended, tenderness, guarding, rebound, rigid Extremities exam: Present: tenderness (Mild tenderness to the posterior right knee which patient states has been consistent since her surgery. No calf tenderness.), normal capillary refill (capillary refill less than 2 seconds, to be pulse 2+ right lower extremity.), joint swelling (Minimal right knee edema without erythema or increased warmth. No purulent drainage. Consistent for postop knee). Absent: full ROM (Patient has 45 degrees flexion of the right kne e, Full extension), calf tenderness, other Course Vital Signs 01/05/21 01/05/21 19:45 22:51 Temperature 98.3 F Pulse Rate 107 H 80 Respiratory 20 18 Rate Blood Pressure 152/90 117/65 O2 Sat by Pulse 96 98 Oximetry Medical Decision Making - Medical Decision Making Vitals are stable. Initially patient was tachycardic at 107 but was very anxious upon arrival. This did normalize to the 80s. Physical exam unremarkable. CBC CMP unremarkable. Chest CTA did show acute PE involving few left lower lobe subsegmental branches. Pulmonary negative. No evidence of right heart strain on EKG. I did discuss this case with Dr. Smith who recommends discharging home. Recommend giving patient a dose of Lovenox 100 mg here in the emergency room in transitioning her to Eliquis. She was given a free month of this. HESTIA criteria is negative, meaning low risk. Patient is requesting ultrasound of her leg which did not show any obvious DVT. We do suspect there is a small DVT given symptoms and history are consistent. Patient was offered admission but is comfortable with discharge home. Patient will return here for any worsening signs or symptoms which were discussed in depth. 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 I discussed this case with attending Dr. Roberts who agrees with this assessment and treatment plan. - Lab Data Result diagrams: 01/05/21 20:23 01/05/21 20:23 Lab Results 01/05/21 01/05/21 01/05/21 Range/Units 20:23 20:23 20:23 WBC 10.1 (3.8-10.6) k/uL RBC 4.57 (3.80-5.40) m/uL Hgb 13.9 (11.4-16.0) gm/dL Hct 41.3 (34.0-46.0) % MCV 90.4 (80.0-100.0) fL MCH 30.5 (25.0-35.0) pg MCHC 33.7 (31.0-37.0) g/dL RDW 12.3 (11.5-15.5) % Plt Count 342 (150-450) k/uL MPV 6.9 Neutrophils % 63 % Lymphocytes % 24 % Monocytes % 6 % Eosinophils % 3 % Basophils % 1 % Neutrophils # 6.4 (1.3-7.7) k/uL Lymphocytes # 2.4 (1.0-4.8) k/uL Monocytes # 0.6 (0-1.0) k/uL Eosinophils # 0.3 (0-0.7) k/uL Basophils # 0.1 (0-0.2) k/uL PT 10.1 (9.0-12.0) sec INR 0.9 (<1.2) APTT 24.5 (22.0-30.0) sec Sodium 137 (137-145) mmol/L Potassium 4.1 (3.5-5.1) mmol/L Chloride 102 (98-107) mmol/L Carbon Dioxide 23 (22-30) mmol/L Anion Gap 12 mmol/L BUN 15 (7-17) mg/dL Creatinine 0.64 (0.52-1.04) mg/dL Est GFR (CKD-EPI)AfAm >90 (>60 ml/min/1.73 sqM) Est GFR (CKD-EPI)NonAf >90 (>60 ml/min/1.73 sqM) Glucose 123 H (74-99) mg/dL Calcium 9.5 (8.4-10.2) mg/dL Magnesium 2.0 (1.6-2.3) mg/dL Total Bilirubin 0.6 (0.2-1.3) mg/dL AST 39 H (14-36) U/L ALT 60 H (4-34) U/L Alkaline Phosphatase 84 (38-126) U/L Troponin I (0.000-0.034) ng/mL Total Protein 7.2 (6.3-8.2) g/dL Albumin 4.2 (3.5-5.0) g/dL 01/05/21 Range/Units 20:23 WBC (3.8-10.6) k/uL RBC (3.80-5.40) m/uL Hgb (11.4-16.0) gm/dL Hct (34.0-46.0) % MCV (80.0-100.0) fL MCH (25.0-35.0) pg MCHC (31.0-37.0) g/dL RDW (11.5-15.5) % Plt Count (150-450) k/uL MPV Neutrophils % % Lymphocytes % % Monocytes % % Eosinophils % % Basophils % % Neutrophils # (1.3-7.7) k/uL Lymphocytes # (1.0-4.8) k/uL Monocytes # (0-1.0) k/uL Eosinophils # (0-0.7) k/uL Basophils # (0-0.2) k/uL PT (9.0-12.0) sec INR (<1.2) APTT (22.0-30.0) sec Sodium (137-145) mmol/L Potassium (3.5-5.1) mmol/L Chloride (98-107) mmol/L Carbon Dioxide (22-30) mmol/L Anion Gap mmol/L BUN (7-17) mg/dL Creatinine (0.52-1.04) mg/dL Est GFR (CKD-EPI)AfAm (>60 ml/min/1.73 sqM) Est GFR (CKD-EPI)NonAf (>60 ml/min/1.73 sqM) Glucose (74-99) mg/dL Calcium (8.4-10.2) mg/dL Magnesium (1.6-2.3) mg/dL Total Bilirubin (0.2-1.3) mg/dL AST (14-36) U/L ALT (4-34) U/L Alkaline Phosphatase (38-126) U/L Troponin I <0.012 (0.000-0.034) ng/mL Total Protein (6.3-8.2) g/dL Albumin (3.5-5.0) g/dL Disposition Clinical Impression: Single subsegmental pulmonary embolism without acute cor pulmonale Disposition: HOME SELF-CARE Condition: Good Instructions (If sedation given, give patient instructions): Pulmonary Embolism (ED) Additional Instructions: Please start Eliquis tomorrow. This was written to your pharmacy. You need to follow up with your doctor early this week. If you have any worsening symptoms such as worsening chest pain or shortness of breath return immediately to the emergency room. Prescriptions: Apixaban [Eliquis Starter Pack (for VTE)] 0 mg PO DIRECTED 30 Days #1 pack Is patient prescribed a controlled substance at d/c from ED?: No Referrals: Nilo Noe MD [Primary Care Provider] - 1-2 days Shahram Funez MD [STAFF PHYSICIAN] - 1-2 days Time of Disposition: 23:25
[2021-01-05 20:31] LABS: Basophils # (A) 0.1 k/uL (0-0.2); Basophils % (A) 1 %; Eosinophils # (A) 0.3 k/uL (0-0.7); Eosinophils % (A) 3 %; HCT 41.3 % (34.0-46.0); HGB 13.9 gm/dL (11.4-16.0); Lymphocytes # (A) 2.4 k/uL (1.0-4.8); Lymphocytes % (A) 24 %; MCH 30.5 pg (25.0-35.0); MCHC 33.7 g/dL (31.0-37.0); MCV 90.4 fL (80.0-100.0); Mean Platelet Volume 6.9; Monocytes # (A) 0.6 k/uL (0-1.0); Monocytes % (A) 6 %; Neutrophils # (A) 6.4 k/uL (1.3-7.7); Neutrophils % (A) 63 %; Platelet Count 342 k/uL (150-450); RBC 4.57 m/uL (3.80-5.40); RDW 12.3 % (11.5-15.5); WBC 10.1 k/uL (3.8-10.6)
[2021-01-05 20:43] LABS: ALT 60 U/L (4-34); AST 39 U/L (14-36); African American GFR (CKD) >90 (>60 ml/min/1.73 sqM); Albumin 4.2 g/dL (3.5-5.0); Alkaline Phosphatase 84 U/L (38-126); Anion Gap 12 mmol/L; Blood Urea Nitrogen 15 mg/dL (7-17); Calcium 9.5 mg/dL (8.4-10.2); Carbon Dioxide 23 mmol/L (22-30); Chloride 102 mmol/L (98-107); Glucose 123 mg/dL (74-99); INR 0.9 (<1.2); Non-African American GFR(CKD) >90 (>60 ml/min/1.73 sqM); Partial Thromboplastin Time 24.5 sec (22.0-30.0); Prothrombin Time 10.1 sec (9.0-12.0); Sodium 137 mmol/L (137-145); Total Bilirubin 0.6 mg/dL (0.2-1.3); Total Protein 7.2 g/dL (6.3-8.2)
[2021-01-05 20:51] LABS: Potassium 4.1 mmol/L (3.5-5.1)
--- NOTE | 2021-01-05 21:07 | CT ---
EXAMINATION TYPE: CT chest angio for PE DATE OF EXAM: 01/05/2021 COMPARISON: None available. HISTORY: chest pain 5 days post knee sx CT DLP: 518.6 mGycm Automated exposure control for dose reduction was used. CONTRAST: CT Chest for pulmonary embolism performed with with IV Contrast, patient injected with 80cc mL of Iso eamon 370. MIPS reformats were provided and reviewed. FINDINGS: LUNGS: The lungs are grossly clear, there is no concerning parenchymal mass or nodule identified. T here is no pleural effusion or pneumothorax seen. The tracheobronchial tree is patent. MEDIASTINUM: There is satisfactory enhancement of the pulmonary artery and its branches. There are a few filling defects within the left lower lobe subsegmental arterial branches. There are no greater than 1 cm hilar or mediastinal lymph nodes. No pericardial effusion is seen. OTHER: No additional significant abnormality is seen. IMPRESSION: Acute PE involving few left lower lobe subsegmental branches. Findings were reported to JOSE Arredondo by me at the time of dictation.
[2021-01-05] MEDS ORDERED: HYDROcodone/APAP 7.5-325MG 1 EACH TAB PO ONE (22:19)
[2021-01-05 22:55] VITALS: BP 117/65; PULSE 80; RESP 18
--- NOTE | 2021-01-05 23:13 | US ---
EXAMINATION TYPE: US venous doppler duplex LE RT DATE OF EXAM: 01/05/2021 11:04 PM COMPARISON: NONE CLINICAL HISTORY: dvt. R/O DVT. Pain since patient had right knee surgery on 01/01/21. No hx of DVT. Pa joy takes baby aspirin. SIDE PERFORMED: Right TECHNIQUE: The lower extremity deep venous system is examined utilizing real time linear array sonog kisha with graded compression, doppler sonography and color-flow sonography. VESSELS IMAGED: Common Femoral Vein Deep Femoral Vein Greater Saphenous Vein * Femoral Vein Popliteal Vein Small Saphenous Vein * Proximal Calf Veins (* superficial vessels) Right Leg: No evidence of DVT in veins imaged at this time from prox calf veins to CFV/GSV. IMPRESSION: No sign of deep vein thrombosis in the right leg.
[2021-01-05] MEDS ORDERED: ENOXAPARIN 100 MG/ML SYRINGE SQ STA (23:16)
== END 2021-01-05 23:35 | disposition home or self-care (01) ==
LOC: EC 19:43
DX: I26.93 Single subsegmental thrombotic pulmonary embolism without acute cor pulmonale (principal); K21.9 Gastro-esophageal reflux disease without esophagitis; E07.9 Disorder of thyroid, unspecified; F41.9 Anxiety disorder, unspecified; F32.9 Major depressive disorder, single episode, unspecified; Z79.899 Other long term (current) drug therapy; Z79.890 Hormone replacement therapy; Z88.1 Allergy status to other antibiotic agents; Z87.891 Personal history of nicotine dependence
CPT/HCPCS: 36415; 93005; 80053; 83735; 84484; 85025; 85610; 85730; 93971; 71275; 99285; 96360; 96372; J1650; Q9967

== ENCOUNTER → 2021-01-09 | Outpatient (CLI) | payer MEDICAID ==
[2021-01-09 16:49] LABS: Basophils # (A) 0.1 k/uL (0-0.2); Basophils % (A) 1 %; Eosinophils # (A) 0.2 k/uL (0-0.7); Eosinophils % (A) 2 %; HCT 42.7 % (34.0-46.0); Lymphocytes # (A) 2.1 k/uL (1.0-4.8); Lymphocytes % (A) 17 %; MCH 29.8 pg (25.0-35.0); MCHC 32.8 g/dL (31.0-37.0); MCV 90.9 fL (80.0-100.0); Mean Platelet Volume 6.7; Monocytes # (A) 0.6 k/uL (0-1.0); Monocytes % (A) 5 %; Neutrophils # (A) 8.9 k/uL (1.3-7.7); Neutrophils % (A) 74 %; Platelet Count 389 k/uL (150-450); RDW 12.4 % (11.5-15.5); WBC 12.1 k/uL (3.8-10.6)
--- NOTE | 2021-01-09 17:05 | US ---
EXAMINATION TYPE: US groin RT DATE OF EXAM: 01/09/2021 COMPARISON: NONE CLINICAL HISTORY: R10.2 inguinal pain. Pt states sudden onset of right groin pain/ pt is status post right ACL surgery Within right groin in area of pt's pain there are 2 normal appearing lymph nodes 1)= 0.5 cm AP 2 )= 0.6 cm AP, otherwise no other abnormality visualized IMPRESSION: No definite acute abnormality is seen. Few benign right inguinal lymph nodes present.
[2021-01-09 17:07] LABS: ALT 33 U/L (4-34); AST 26 U/L (14-36); African American GFR (CKD) >90 (>60 ml/min/1.73 sqM); Albumin 4.7 g/dL (3.5-5.0); Alkaline Phosphatase 89 U/L (38-126); Anion Gap 12 mmol/L; Blood Urea Nitrogen 16 mg/dL (7-17); Calcium 9.7 mg/dL (8.4-10.2); Carbon Dioxide 22 mmol/L (22-30); Chloride 104 mmol/L (98-107); Glucose 101 mg/dL (74-99); Non-African American GFR(CKD) >90 (>60 ml/min/1.73 sqM); Potassium 4.1 mmol/L (3.5-5.1); Sodium 138 mmol/L (137-145); Total Bilirubin 0.5 mg/dL (0.2-1.3); Total Protein 7.8 g/dL (6.3-8.2)
== END | disposition home or self-care (01) ==
LOC: RADUSWWP 16:25
PROVIDERS: ATTEND Family Medicine
DX: D36.0 Benign neoplasm of lymph nodes (principal)
CPT/HCPCS: 80053; 84165; 85025

== ENCOUNTER → 2021-07-27 | Outpatient (CLI) | payer MEDICAID ==
[2021-07-28 04:26] LABS: T4, Free (Free Thyroxine) 1.1 ng/dL (0.80-1.80)
[2021-07-28 10:53] LABS: Protein C (Activity) 138 % (71-138)
== END | disposition home or self-care (01) ==
LOC: LABWHC1 15:55
PROVIDERS: ATTEND Nurse Practitioner Adult Health
DX: I26.99 Other pulmonary embolism without acute cor pulmonale (principal); E04.1 Nontoxic single thyroid nodule
CPT/HCPCS: 36415; 84439; 84443; 84481; 85303; 85306

== ENCOUNTER → 2021-07-27 | Outpatient (CLI) | payer MEDICAID ==
--- NOTE | 2021-07-27 16:07 | CT ---
EXAMINATION TYPE: CT angio chest DATE OF EXAM: 07/27/2021 3:57 PM COMPARISON: Chest CT January 05, 2021 HISTORY: chest pain, hx of PE CT DLP: 424.3 mGycm Automated exposure control for dose reduction was used. CONTRAST: CTA scan of the thorax is performed with IV Contrast, patient injected with 60cc mL of Isovue 370, pu lmonary embolism protocol. MIP images are created and reviewed. FINDINGS: LUNGS: The lungs remain grossly clear, there is no concerning parenchymal mass or nodule identified. There is no pleural effusion or pneumothorax seen. The tracheobronchial tree is patent. MEDIASTINUM: There is satisfactory enhancement of the pulmonary artery and its branches, there is no CT evidence for acute pulmonary embolism on current study. Opacification of subsegmental left lower l obe branches on current study. Poor opacification of the thoracic aorta without aneurysm. There are n o new greater than 1 cm hilar or mediastinal lymph nodes. No cardiomegaly or pericardial effusion i s seen. OTHER: No additional significant abnormality is seen. IMPRESSION: No CT evidence for acute pulmonary embolism. No suspicious acute pulmonary process.
== END | disposition home or self-care (01) ==
LOC: RADCTMAIN 15:27
PROVIDERS: ATTEND Internal Medicine Hematology & Oncology
DX: I26.99 Other pulmonary embolism without acute cor pulmonale (principal)
CPT/HCPCS: 71275; Q9967

== ENCOUNTER → 2021-08-25 | Outpatient (CLI) | payer MEDICAID ==
--- NOTE | 2021-08-26 11:15 | ECHOF ---
Referral Reason:R00.2 Palpitations MEASUREMENTS -------- HEIGHT: 172.7 cm WEIGHT: 96.6 kg BP: RVIDd: 3.4 cm (< 3.3) IVSd: 1.1 cm (0.6 - 1.1) LVIDd: 3.9 cm (3.9 - 5.3) LVPWd: 1.0 cm (0.6 - 1.1) IVSs: 1.3 cm LVIDs: 2.6 cm LVPWs: 1.6 cm LAESV Index (A-L): 20.19 ml/m Ao Diam: 2.6 cm (2.0 - 3.7) AV Cusp: 2.1 cm (1.5 - 2.6) LA Diam: 3.4 cm (2.7 - 3.8) MV EXCURSION: 18.829 mm (> 18.000) MV EF SLOPE: 55 mm/s (70 - 150) EPSS: 0.5 cm MV E Dominic: 0.55 m/s MV DecT: 291 ms MV A Dominic: 0.43 m/s MV E/A Ratio: 1.28 RAP: 5.00 mmHg RVSP: 19.91 mmHg FINDINGS -------- Sinus rhythm. This was a technically adequate study. The left ventricular size is normal. Left ventricular wall thickness is normal. Overall left vent ricular systolic function is normal with, an EF between 55 - 60 %. The diastolic filling pattern is normal for the age of the patient 4.90. The right ventricle is mildly enlarged. Normal LA size by volume 22+/-6 ml/m2. The right atrial size is normal. Interatrial and interventricular septum intact. The aortic valve is trileaflet and appears structurally normal. There is no evidence of aortic regu rgitation. There is no evidence of aortic stenosis. There is trace mitral regurgitation. Mild tricuspid regurgitation present. There is no evidence of pulmonary hypertension. The right v entricular systolic pressure, as measured by Doppler, is 19.91mmHg. There is no pulmonic regurgitation present. The aortic root size is normal. Normal inferior vena cava with normal inspiratory collapse consistent with estimated right atrial pre ssure of 5 mmHg. CONCLUSIONS -------- 1. The left ventricular size is normal. 2. Left ventricular wall thickness is normal. 3. Overall left ventricular systolic function is normal with, an EF between 55 - 60 %. 4. The diastolic filling pattern is normal for the age of the patient 4.90 5. The right ventricle is mildly enlarged. 6. There is trace mitral regurgitation. 7. Mild tricuspid regurgitation present. DITCHING MACHINE ENGINEER: Azalea Lockhart RDCS
== END | disposition home or self-care (01) ==
LOC: RADECHMAIN 10:47
PROVIDERS: ATTEND Family Medicine
DX: I51.7 Cardiomegaly (principal); I34.0 Nonrheumatic mitral (valve) insufficiency
CPT/HCPCS: 93270; 93306

== ENCOUNTER → 2021-12-13 | Outpatient (CLI) | payer MEDICAID, OTHER | END | disposition home or self-care (01) | LOC: LABWHC1 11:31 | PROVIDERS: ATTEND Emergency Medicine | DX: Z20.822 Contact with and (suspected) exposure to COVID-19 (principal) | CPT/HCPCS: 87635 ==

== ENCOUNTER 2023-04-04 20:13 | Emergency (ER) | payer MEDICAID ==
[2023-04-04 20:21] VITALS: TEMP 97.9
[2023-04-04] MEDS ORDERED: SODIUM CHLORIDE 0.9% 1,000 ML IV STA (20:37)
[2023-04-04 21:17] LABS: Basophils % (A) 1 %; Eosinophils # (A) 0.2 k/uL (0-0.7); Eosinophils % (A) 2 %; HCT 41.2 % (34.0-46.0); HGB 13.6 gm/dL (11.4-16.0); Lymphocytes # (A) 2.5 k/uL (1.0-4.8); Lymphocytes % (A) 30 %; MCH 30.8 pg (25.0-35.0); MCHC 32.9 g/dL (31.0-37.0); MCV 93.5 fL (80.0-100.0); Mean Platelet Volume 7.7; Monocytes # (A) 0.5 k/uL (0-1.0); Monocytes % (A) 6 %; Neutrophils # (A) 4.8 k/uL (1.3-7.7); Neutrophils % (A) 58 %; Platelet Count 319 k/uL (150-450); RBC 4.41 m/uL (3.80-5.40); RDW 12.6 % (11.5-15.5); WBC 8.2 k/uL (3.8-10.6)
[2023-04-04 21:29] LABS: INR 0.9 (<1.2); Prothrombin Time 9.9 sec (9.0-12.0)
[2023-04-04 21:30] LABS: Partial Thromboplastin Time 25.4 sec (22.0-30.0)
--- NOTE | 2023-04-04 21:42 | XR ---
EXAMINATION TYPE: XR chest 2V DATE OF EXAM: 04/04/2023 COMPARISON: None HISTORY: 42-year-old female with chest pain and chest tightness TECHNIQUE: PA and lateral views FINDINGS: The cardiomediastinal silhouette, aorta, and pulmonary vasculature are within normal limits. Lungs an d pleural spaces are clear. IMPRESSION: No acute cardiopulmonary process.
[2023-04-04 21:50] LABS: ALT 30 U/L (4-34); AST 33 U/L (14-36); African American GFR (CKD) >90 (>60 ml/min/1.73 sqM); Albumin 4.5 g/dL (3.5-5.0); Alkaline Phosphatase 87 U/L (38-126); Anion Gap 11 mmol/L; Blood Urea Nitrogen 17 mg/dL (7-17); Calcium 9.3 mg/dL (8.4-10.2); Carbon Dioxide 24 mmol/L (22-30); Chloride 105 mmol/L (98-107); Glucose 97 mg/dL (74-99); Magnesium 2.1 mg/dL (1.6-2.3); Non-African American GFR(CKD) >90 (>60 ml/min/1.73 sqM); Potassium 4.3 mmol/L (3.5-5.1); Sodium 140 mmol/L (137-145); Total Bilirubin 0.3 mg/dL (0.2-1.3); Total Protein 7.3 g/dL (6.3-8.2)
--- NOTE | 2023-04-04 22:30 | ED ---
General Adult HPI - General Chief complaint: Chest Pain Stated complaint: Chest tightness Time Seen by Provider: 04/04/23 20:22 Source: patient Mode of arrival: ambulatory Limitations: no limitations - History of Present Illness Initial comments: Patient is a 42-year-old female presenting with chief complaint of chest pain. Patient states that this morning she started experiencing squeezing chest pain located on the left upper side of the chest. Pain radiates into the axilla. States that the pain comes on at random. She also admits to pain with deep breaths. Patient has history of pulmonary embolism, states that she feels somewhat similar and wanted to be checked out. She also notes that she has been having some shortness of breath when bending over. No lower extremity swelling, recent surgery, recent travel, oral contraceptives or other hormones, shortness of breath, palpitations, numbness, tingling, abdominal, nausea, vomiting, fever, chills, cough, congestion, sore throat. - Related Data Home Medications Medication Instructions Recorded Confirmed Acetaminophen Tab [Tylenol Tab] 500 mg PO DAILY PRN 12/30/20 01/05/21 Estrogens, Conjugated [Premarin] 0.3 mg PO DAILY 12/30/20 01/05/21 busPIRone HCl [Buspar] 5 mg PO HS 12/30/20 01/05/21 Melatonin 5 mg PO HS PRN 01/01/21 01/05/21 Azithromycin [Zithromax] 500 mg PO DAILY 01/05/21 01/05/21 Cholecalciferol [Vitamin D3 (25 50 mcg PO DAILY 01/05/21 01/05/21 Mcg = 1000 Iu)] HYDROcodone/APAP 7.5-325MG [[place] 1 - 2 tab PO Q6HR PRN 01/05/21 01/05/21 7.5-325] Levothyroxine Sodium [Synthroid] 88 mcg PO DAILY 01/05/21 01/05/21 hydrOXYzine HCL [Atarax] 25 mg PO DAILY PRN 01/05/21 01/05/21 Previous Rx's Medication Instructions Recorded Aspirin [Adult Low Dose Aspirin EC] 81 mg PO BID #60 tablet. 01/01/21 Apixaban [Eliquis Starter Pack 0 mg PO DIRECTED 30 Days #1 pack 01/05/21 (for VTE)] Allergies Allergy/AdvReac Type Severity Reaction Status Date / Time levofloxacin [From Levaquin] AdvReac Nausea & Verified 04/04/23 20:21 Vomiting & Diarrhea Review of Systems ROS Statement: Those systems with pertinent positive or pertinent negative responses have been documented in the HPI. ROS Other: All systems not noted in ROS Statement are negative. Past Medical History Past Medical History: GERD/Reflux, Pulmonary Embolus (PE), Thyroid Disorder Additional Past Medical History / Comment(s): thyroid nodule. hx pseudotumor cerbri/idiopathic intracranial hypertension, irritable bowel,. MRI- Showed "White Matter Changes" History of Any Multi-Drug Resistant Organisms: None Reported Past Surgical History: Appendectomy, Hysterectomy, Orthopedic Surgery Additional Past Surgical History / Comment(s): Oophorectomy 2011. colonoscopy, egd, jan 01 2021 right knee surgery Past Anesthesia/Blood Transfusion Reactions: Motion Sickness Past Psychological History: Anxiety, Depression Smoking Status: Former smoker Past Alcohol Use History: Occasional Past Drug Use History: None Reported - Past Family History Mother Family Medical History: No Reported History Additional Family Medical History / Comment(s): maternal grandmother with breast cancer General Exam Limitations: no limitations General appearance: alert, in no apparent distress Head exam: Present: atraumatic, normocephalic, normal inspection Eye exam: Present: normal appearance, EOMI. Absent: scleral icterus, periorbital swelling Neck exam: Present: normal inspection, full ROM Respiratory exam: Present: normal lung sounds bilaterally. Absent: respiratory distress, wheezes, rales, rhonchi, stridor, chest wall tenderness Cardiovascular Exam: Present: regular rate, normal rhythm, normal heart sounds. Absent: systolic murmur, diastolic murmur, rubs, gallop, clicks Neurological exam: Present: alert, oriented X3, CN II-XII intact Psychiatric exam: Present: normal affect, normal mood Skin exam: Present: warm, dry, intact, normal color. Absent: rash Course Vital Signs 04/04/23 04/04/23 20:17 22:37 Temperature 97.9 F Pulse Rate 84 78 Respiratory 18 14 Rate Blood Pressure 147/92 122/74 O2 Sat by Pulse 100 97 Oximetry EKG Findings - EKG Comments: EKG Findings:: Sinus rhythm ventricular rate 73. MO interval 151. QRS is 89. QT 394. QTc 420. Mild isolted ST deviation in lead III Medical Decision Making - Medical Decision Making Was pt. sent in by a medical professional or institution (, PA, [facility], urgent care, hospital, or custodial...) When possible be specific @ -No Did you speak to anyone other than the patient for history (EMS, parent, family, police, friend...)? What history was obtained from this source @ -No Did you review nursing and triage notes (agree or disagree)? Why? @ -I reviewed and agree with nursing and triage notes Were old charts reviewed (outside hosp., previous admission, EMS record, old EKG, old radiological studies, urgent care reports/EKG's, custodial records)? Report findings @ -No old charts were reviewed Differential Diagnosis (chest pain, altered mental status, abdominal pain women, abdominal pain men, vaginal bleeding, weakness, fever, dyspnea, syncope, headache, dizziness, GI bleed, back pain, seizure, CVA, palpatations, mental health, musculoskeletal)? @ -MDM Differential Chest Pain: Stable Angina, Unstable Angina, STEMI, NSTEMI Aortic Dissection, Pneumothorax, Musculoskeletal, Esophageal Spasm GERD, Cholecystitis, Pancreatitis, Zoster This is not meant to be an all-inclusive list. EKG interpreted by me (3pts min.). @ -As above X-rays interpreted by me (1pt min.). @ -X-ray shows no acute process. CT interpreted by me (1pt min.). @ -None done U/S interpreted by me (1pt. min.). @ -None done What testing was considered but not performed or refused? (CT, X-rays, U/S, l abs)? Why? @ -None What meds were considered but not given or refused? Why? @ -None Did you discuss the management of the patient with other professionals (professionals i.e. , JOSE, [facility], lab, RT, psych nurse, manager social work, mobile product manager, teacher, driver's license reviewing officer, machine adjuster leader case trim)? Give summary @ -No Was smoking cessation discussed for >3mins.? @ -No Was critical care preformed (if so, how long)? @ -No Were there social determinants of health that impacted care today? How? (Homelessness, low income, unemployed, alcoholism, drug addiction, transportation, low edu. Level, literacy, decrease access to med. care, [facility] [facility], rehab)? @ -No Was there de-escalation of care discussed even if they declined (Discuss DNR or withdrawal of care, Hospice)? DNR status @ -No What co-morbidities impacted this encounter? (DM, HTN, Smoking, COPD, CAD, Cance r, CVA, ARF, Chemo, Hep., AIDS, mental health diagnosis, sleep apnea, morbid obesity)? @ -None Was patient admitted / discharged? Hospital course, mention meds given and route, prescriptions, significant lab abnormalities, going to OR and other pertinent info. @ -Patient is a 42-year-old female presenting with chief complaint of chest pain that started today. On physical examination heart and lungs are clear to auscultation. Vital signs are WNL. Lab work is negative, including negative d- dimer and negative troponin. Chest x-ray shows no acute process. Educated on supportive management of pleurisy. Follow-up with PCP. Report back to ER with any new or worsening symptoms. Discussed return parameters and answered all questions. Patient conveyed verbal understanding and agreed to the plan. I discussed this case in detail with my attending Dr. Turner Undiagnosed new problem with uncertain prognosis? @ -No Drug Therapy requiring intensive monitoring for toxicity (Heparin, Nitro, Insulin, Cardizem)? @ -No Were any procedures done? @ -No Diagnosis/symptom? @ -pleurisy Acute, or Chronic, or Acute on Chronic? @ -Acute Uncomplicated (without systemic symptoms) or Complicated (systemic symptoms)? @ -Uncomplicated Side effects of treatment? @ -No Exacerbation, Progression, or Severe Exacerbation? @ -No Poses a threat to life or bodily function? How? (Chest pain, [place], [place], pneumonia, PE, COPD, DKA, ARF, appy, cholecystitis, CVA, Diverticulitis, Homicidal, Suicidal, threat to staff... and all critical care pts) @ -No - Lab Data Result diagrams: 04/04/23 20:50 04/04/23 20:50 Lab Results 04/04/23 04/04/23 04/04/23 Range/Units 20:50 20:50 20:50 WBC 8.2 (3.8-10.6) k/uL RBC 4.41 (3.80-5.40) m/uL Hgb 13.6 (11.4-16.0) gm/dL Hct 41.2 (34.0-46.0) % MCV 93.5 (80.0-100.0) fL MCH 30.8 (25.0-35.0) pg MCHC 32.9 (31.0-37.0) g/dL RDW 12.6 (11.5-15.5) % Plt Count 319 (150-450) k/uL MPV 7.7 Neutrophils % 58 % Lymphocytes % 30 % Monocytes % 6 % Eosinophils % 2 % Basophils % 1 % Neutrophils # 4.8 (1.3-7.7) k/uL Lymphocytes # 2.5 (1.0-4.8) k/uL Monocytes # 0.5 (0-1.0) k/uL Eosinophils # 0.2 (0-0.7) k/uL Basophils # 0.0 (0-0.2) k/uL PT 9.9 (9.0-12.0) sec INR 0.9 (<1.2) APTT 25.4 (22.0-30.0) sec D-Dimer 0.18 (<0.60) mg/L FEU Sodium 140 (137-145) mmol/L Potassium 4.3 (3.5-5.1) mmol/L Chloride 105 (98-107) mmol/L Carbon Dioxide 24 (22-30) mmol/L Anion Gap 11 mmol/L BUN 17 (7-17) mg/dL Creatinine 0.61 (0.52-1.04) mg/dL Est GFR (CKD-EPI)AfAm >90 (>60 ml/min/1.73 sqM) Est GFR (CKD-EPI)NonAf >90 (>60 ml/min/1.73 sqM) Glucose 97 (74-99) mg/dL Calcium 9.3 (8.4-10.2) mg/dL Magnesium 2.1 (1.6-2.3) mg/dL Total Bilirubin 0.3 (0.2-1.3) mg/dL AST 33 (14-36) U/L ALT 30 (4-34) U/L Alkaline Phosphatase 87 (38-126) U/L Troponin I (0.000-0.034) ng/mL Total Protein 7.3 (6.3-8.2) g/dL Albumin 4.5 (3.5-5.0) g/dL 04/04/23 Range/Units 20:50 WBC (3.8-10.6) k/uL RBC (3.80-5.40) m/uL Hgb (11.4-16.0) gm/dL Hct (34.0-46.0) % MCV (80.0-100.0) fL MCH (25.0-35.0) pg MCHC (31.0-37.0) g/dL RDW (11.5-15.5) % Plt Count (150-450) k/uL MPV Neutrophils % % Lymphocytes % % Monocytes % % Eosinophils % % Basophils % % Neutrophils # (1.3-7.7) k/uL Lymphocytes # (1.0-4.8) k/uL Monocytes # (0-1.0) k/uL Eosinophils # (0-0.7) k/uL Basophils # (0-0.2) k/uL PT (9.0-12.0) sec INR (<1.2) APTT (22.0-30.0) sec D-Dimer (<0.60) mg/L FEU Sodium (137-145) mmol/L Potassium (3.5-5.1) mmol/L Chloride (98-107) mmol/L Carbon Dioxide (22-30) mmol/L Anion Gap mmol/L BUN (7-17) mg/dL Creatinine (0.52-1.04) mg/dL Est GFR (CKD-EPI)AfAm (>60 ml/min/1.73 sqM) Est GFR (CKD-EPI)NonAf (>60 ml/min/1.73 sqM) Glucose (74-99) mg/dL Calcium (8.4-10.2) mg/dL Magnesium (1.6-2.3) mg/dL Total Bilirubin (0.2-1.3) mg/dL AST (14-36) U/L ALT (4-34) U/L Alkaline Phosphatase (38-126) U/L Troponin I <0.012 (0.000-0.034) ng/mL Total Protein (6.3-8.2) g/dL Albumin (3.5-5.0) g/dL Disposition Clinical Impression: Pleurisy Disposition: HOME SELF-CARE Condition: Good Instructions (If sedation given, give patient instructions): Chest Pain (ED), Pleurisy (ED) Additional Instructions: Follow-up with PCP. Report back to ER with any new or worsening symptoms. Alternate Motrin and Tylenol as needed for pain control. Is patient prescribed a controlled substance at d/c from ED?: No Referrals: Nilo Noe MD [Primary Care Provider] - 1-2 days Time of Disposition: 22:30
[2023-04-04 22:39] VITALS: BP 122/74; PULSE 78; RESP 14
== END 2023-04-04 22:38 | disposition home or self-care (01) ==
LOC: EC 20:13
DX: R09.1 Pleurisy (principal); I10 Essential (primary) hypertension; E07.9 Disorder of thyroid, unspecified; F41.9 Anxiety disorder, unspecified; F32.A Depression, unspecified; Z86.711 Personal history of pulmonary embolism; Z87.891 Personal history of nicotine dependence; Z88.1 Allergy status to other antibiotic agents; Z79.890 Hormone replacement therapy; Z79.899 Other long term (current) drug therapy
CPT/HCPCS: 36415; 71046; 80053; 83735; 84484; 85025; 85379; 85610; 85730; 93005; 96360; 99285

== ENCOUNTER → 2024-02-27 | Outpatient (CLI) | payer MEDICAID ==
--- NOTE | 2024-02-27 15:31 | CT ---
EXAMINATION TYPE: CT abdomen pelvis wo con DATE OF EXAM: 02/27/2024 COMPARISON: None HISTORY: right sided abdominal pain, elevated lipase CT DLP: 1001 mGycm Examination of the solid and hollow viscera is limited given the lack of contrast. FINDINGS: LUNG BASES: No evidence for nodule. No evidence for infiltrate. LIVER/GB: The gallbladder is unremarkable. No space-occupying hepatic lesion. PANCREAS: No pancreatic mass identified. No inflammatory process seen. SPLEEN: No evidence for splenomegaly. No intrasplenic lesions seen. ADRENALS: No adrenal nodules identified. No evidence for thickening. KIDNEYS: No evidence for renal mass. No nephrolithiasis. No hydronephrosis. BOWEL: Nonvisualization of the appendix. No evidence of bowel obstruction. No inflammatory process. M oderate rectosigmoid fecal stasis. Lymph nodes: No evidence for adenopathy greater than 1 cm. Abdominal aorta: Atheromatous changes seen. No evidence for aneurysm. Genital organs: No significant abnormality. Other: No significant abnormality. IMPRESSION: 1. No CT evidence to suggest pancreatitis however correlate with lipase and amylase.
== END | disposition home or self-care (01) ==
LOC: RADCTMAIN 13:34
PROVIDERS: ATTEND Family Medicine
DX: R74.8 Abnormal levels of other serum enzymes (principal)
CPT/HCPCS: 74176

== ENCOUNTER → 2025-04-04 | Outpatient (CLI) | payer MEDICAID ==
[2025-04-04 14:54] LABS: Basophils # (A) 0.07 X 10*3/uL (0.00-0.10); Basophils % (A) 1.1 %; Eosinophils % (A) 1.6 %; HCT 40.2 % (37.2-46.3); HGB 13.4 g/dL (12.0-15.0); Lymphocytes # (A) 2.01 X 10*3/uL (0.90-5.00); Lymphocytes % (A) 31.4 %; MCH 30.6 pg (27.0-32.0); MCHC 33.3 g/dL (32.0-37.0); MCV 91.8 FL (80.0-97.0); Monocytes # (A) 0.56 X 10*3/uL (0.20-1.00); Monocytes % (A) 8.8 %; NRBC Per 100 WBC 0 X 10*3/uL (0.00-0.01); Neutrophils # (A) 3.63 X 10*3/uL (1.80-7.70); Neutrophils % (A) 56.6 %; Platelet Count 323 X 10*3/uL (140-440); RBC 4.38 X 10*6/uL (4.10-5.20); RDW 12.7 % (11.5-14.5)
[2025-04-04 15:44] LABS: % Iron Saturation 19.49 (12.00-45.00); ALT 21 U/L (8-44); AST 19 U/L (13-35); Albumin 4.4 g/dL (3.8-4.9); Albumin/Globulin Ratio 1.91 Ratio (1.60-3.17); Alkaline Phosphatase 78 U/L (41-126); BUN/Creat Ratio 17.86 Ratio (12.00-20.00); Blood Urea Nitrogen 12.5 mg/dL (9.0-27.0); Calcium 9.4 mg/dL (8.7-10.3); Carbon Dioxide 24.1 mmol/L (21.6-31.8); Chloride 106 mmol/L (96-109); Chol/HDL Ratio 3.46 Ratio; Ferritin 93.3 ng/mL (10.0-291.0); Globulin 2.3 g/dL (1.6-3.3); Glucose 90 mg/dL (70-110); Iron 77 UG/DL (50-170); Potassium 4.4 mmol/L (3.5-5.5); Sodium 141 mmol/L (135-145); T4, Free (Free Thyroxine) 1.38 ng/dL (0.80-1.80); Total Bilirubin 0.4 mg/dL (0.3-1.2); Total Iron Binding Capacity 395 UG/DL (228-460); Total Protein 6.7 g/dL (6.2-8.2)
== END | disposition home or self-care (01) ==
LOC: LABWHC1 08:33
PROVIDERS: ATTEND Family Medicine
DX: Z00.00 Encounter for general adult medical examination without abnormal findings (principal); Z13.1 Encounter for screening for diabetes mellitus; E03.9 Hypothyroidism, unspecified; R00.2 Palpitations
CPT/HCPCS: 36415; 80053; 80061; 82607; 82728; 82746; 83036; 83540; 83550; 83735; 84439; 84443; 84481; 85025